=== PATIENT | female | born 1945 | race Caucasian/White ===

== ENCOUNTER 2016-06-29 10:15 | Observation (INO) ==
[2016-06-29] MEDS ORDERED: Ipratropium/Albuterol Neb 3 ML IH ONE (10:21)
--- NOTE | 2016-06-29 10:27 | Emergency Department Note ---
Disposition Clinical Impression: Weakness, Frequent falls, Unsteady gait Disposition: Admitted As Inpatient Condition: Good Time of Disposition: 14:29 Fall HPI - General Chief Complaint: ED Fall Stated Complaint: fall Time Seen by Provider: 06/29/16 10:20 Source: family, EMS Mode of arrival: ambulatory Limitations: no limitations Nursing Notes Reviewed: Yes Vital Signs Reviewed: Yes - History of Present Illness HPI Narrative: 71-year-old female history of diabetes, sleep apnea, and COPD presents the ED via EMS status post fall. is in the room and assists with history. found patient on the bathroom floor 0330 in the morning and was unable to help her up. Around 0830 he called son to come help pick her up. EMS was called. Patient believes she fell because she slipped on a magazine cover or plastic bag. Denies any lightheadedness, chest pain, shortness of breath. Complains of pain in the right hip but points in the right lower lumbar/gluteal region. History of falls in the pass due to leg weakness. Was in therapy in the past but not recently. No history of cardiac ischemic disease. Pt Subjective Complaint: fall - Related Data Home Medications Medication Instructions Recorded Confirmed Albuterol Sulfate [Albuterol 1 - 2 puff IH Q6HR PRN 12/29/14 06/29/16 Inhaler] Atenolol [Tenormin] 25 mg PO DAILY 12/29/14 06/29/16 Budesonide/Formoterol 160/4.5 2 puff IH BID 12/29/14 06/29/16 [Symbicort] Carbidopa/Levodopa 10/100 [Sinemet] 1 tab PO TID 12/29/14 06/29/16 Cetirizine HCl [Zyrtec] 10 mg PO DAILY 12/29/14 06/29/16 FLUoxetine HCl [Prozac] 40 mg PO DAILY 12/29/14 06/29/16 Lansoprazole [Prevacid] 30 mg PO QAM 12/29/14 06/29/16 Lisinopril [Zestril] 10 mg PO DAILY 12/29/14 06/29/16 Magnesium Oxide 500 mg PO DAILY 05/29/16 06/29/16 Amitriptyline HCl 100 - 200 mg PO HS 06/29/16 06/29/16 BuPROPion SR (12 HR) [Wellbutrin 150 mg PO BID 06/29/16 06/29/16 SR] Buspirone HCl [Buspar] 5 mg PO TID 06/29/16 06/29/16 Gabapentin [Neurontin] 400 mg PO TID 06/29/16 06/29/16 HYDROcodone/Acet 10/325 mg [[place] 1 tab PO TID PRN 06/29/16 06/29/16 10-325 mg] Hydrochlorothiazide [Microzide] 12.5 mg PO DAILY 06/29/16 06/29/16 Ropinirole [Requip] 3 mg PO HS 06/29/16 06/29/16 Tizanidine HCl [Zanaflex] 4 mg PO Q8H PRN 06/29/16 06/29/16 Previous Rx's Medication Instructions Recorded Ascorbic Acid [Vitamin C] 500 mg PO DAILY #30 tablet 07/07/15 Ferrous Sulfate [Iron] 325 mg PO DAILY #30 capsule.er 07/07/15 Allergies Allergy/AdvReac Type Severity Reaction Status Date / Time ciprofloxacin [From Cipro] Allergy Rash Verified 06/29/16 16:00 estradiol [From Climara] Allergy Rash Verified 06/29/16 16:00 lidocaine [From Lidoderm] Allergy Rash Verified 06/29/16 16:00 tramadol Allergy Rash Verified 06/29/16 16:00 All systems ED: reviewed and negative except as stated. Constitutional: Reports: weakness. Denies: fever, chills Cardiovascular: Denies: chest pain, palpitations Respiratory: Denies: cough, dyspnea Gastrointestinal: Denies: abdominal pain, nausea, vomiting Genitourinary: Denies: urgency, dysuria Musculoskeletal: Reports: back pain Integumentary: Denies: rash Neurological: Denies: headache Endocrine: Reports: fatigue Fall PMH - Past Medical History Medical history: Reports: COPD, diabetes, renal disease, other Surgical history: Reports: appendectomy, , cholecystectomy (1989), hysterectomy (GORDON and BSA ), orthopedic, other (sx on both feet; bunionectomy; right knee surgery), other (bladder and bowel surgery x3 ([place])10/19; colonoscopy 2012) Psychiatric history: Reports: anxiety, depression, other - Social History Smoking Status: Current every day smoker Alcohol use: Reports: unknown Drug use: Reports: none Physical Exam - General Limitations: altered mental status General appearance: alert, in no apparent distress - Head Head exam: atraumatic, normocephalic, normal inspection - Eye Eye exam: Present: normal appearance, PERRL, EOMI - ENT ENT exam: normal exam, normal oropharynx, mucous membranes dry - Neck Neck exam: Present: normal inspection, full ROM, trachea midline - Chest Chest inspection: Present: normal inspection, symmetric chest wall rise - Respiratory Respiratory exam: Present: normal lung sounds bilaterally, wheezes - Expanded Respiratory Exam Location: wheezes: Right, rales: Right - Cardiovascular Cardiovascular exam: Present: regular rate, normal rhythm, normal heart sounds - Abdominal Exam Abdominal exam: Present: soft, Non-Tender, normal bowel sounds. Absent: tenderness, distention, guarding, rebound, rigidity - Expanded Lower Extremity Exam Hip/Pelvis exam: Present: full ROM, tenderness (RIGHT HIP). Absent: swelling, deformity, dislocation, internal rotation, shortening Upper leg exam: Present: normal inspection, full ROM Knee exam: Present: normal inspection, full ROM Lower leg exam: Present: normal inspection, full ROM - Back Exam Back exam: Present: normal inspection, full ROM, vertebral tenderness (lumbar), other (ecchymosis to right scapula). Absent: tenderness, CVA tenderness (R), CVA tenderness (L), rashes - Neurological Exam Neurological exam: Present: alert, oriented X3, other (unsteady gait) - Expanded Neurological Exam Patient oriented to: Present: person, place, time Speech: Present: fluid speech Cranial nerves: EOM function (II, III, IV, ): Normal, facial sensation (V): Normal, facial palsy (VII): Normal, gag reflex (IX): Normal, spinal accessory function (XI): Normal, tongue deviation (XII): Normal Cerebellar function: finger to nose: Normal (tremor) Motor strength - LUE: 5/5 Motor strength - RUE: 5/5 Motor strength - LLE: 4/5 Motor strength - RLE: 4/5 Upper motor neuron exam: ping neglect: Absent bilaterally, pronator drift: Absent bilaterally Sensory exam upper extremity: light touch: Normal Sensory exam lower extremity: light touch: Normal Coma Scale Eye Opening: Spontaneous Coma Scale Motor Response: Obeys Commands Coma Scale Verbal Response: Oriented Coma Scale Total: 15 - Psychiatric Psychiatric exam: Present: normal affect, normal mood Course Course Narrative: 71-year-old female presents to ED status post fall. Patient was down for approximately 6 hours. She was supposedly found asleep. Presents with pain in the head. She has not recall the events and denies any prodromal symptoms. Patient is alert and oriented to person place and time. She appears very fatigued and concern for stroke as she leans towards her right. Complains of right hip pain. Lungs are auscultated bilaterally with wheezing and crackles. Heart is regular rate and rhythm. Pain with palpation to right hip, no obvious deformity or dislocation. Legs are equal length. Pulses equal bilaterally. NeurWill image head, neck, and hip. Will also get basic labs, CK, troponin and EKG to check for any cardiac ischemic event or rhabdomyolysis. - Reevaluation(s) Reevaluation #1: Son present at bedside. He reports that patient is a hoarder at home with bags and magazines laying all over the house. She has a history sleep apnea was noncompliant with her CPAP. He reports confirms the suspicion that patient may have slipped as she does have magazines in plastic bags all over the house. Reports she fell a total of 2 times that past few days. When the son was called by the stepfather to come help pear picker patient reports the patient was fast asleep. She does complain of some right leg pain. So far imaging does not reveal any fracture or intracranial abnormalities as interpreted by radiologist. Urine appears contaminated with many squamous cells and moderate leuk esterase, would not treat as UTI. Time: 12:44 Reevaluation #2: Cerebellar testing performed patient was unable to stand without support. She has a very unsteady gait. Attempted Romberg she immediately fell back or towards me. She was able to perform fuel-efficient and finger to nose with some mild disc metro-[place]. Reviewing her medications it appears she takes Sinemet patient's family is unaware of any Parkinson dementia diagnosis. Will admit to hospital with anticipation that she will need PT/OT. Impression generalized weakness, frequent falls, dysequilibrium and unsteady gait. Family and patient are in agreement with plan. Time: 14:27 - Consultations Consultation #1: Spoke with Dr. Beaulieu, admit for generalized weakness, frequent falls, unsteady gait, dysequilibrium. Time: 14:28 Vital Signs Temperature 97.1 F L 06/29/16 10:16 Pulse Rate 91 06/29/16 10:16 Respiratory Rate 18 06/29/16 10:16 Blood Pressure 137/82 06/29/16 10:16 O2 Sat by Pulse Oximetry 91 L 06/29/16 10:16 Temperature 97.8 F 06/29/16 19:57 Pulse Rate 71 06/29/16 19:57 Respiratory Rate 17 06/29/16 19:57 Blood Pressure 113/67 06/29/16 19:57 O2 Sat by Pulse Oximetry 95 06/29/16 19:57 Oxygen Delivery Oxygen Delivery Room Air Fall - Medical Records Medical records reviewed: Yes I reviewed the patient's medical records. - Lab Data Lab results reviewed: Yes I reviewed the patient's lab results. Result diagrams: 06/29/16 11:59 06/29/16 11:59 Lab Results 06/29/16 06/29/16 06/29/16 Range/Units 10:20 11:00 11:59 WBC 9.4 (4.3-11.1) K/mcL RBC 3.58 L (3.82-4.97) M/mcL Hgb 12.0 (11.5-15.4) g/dL Hct 34.2 L (35.3-44.9) % MCV 95.5 (83.0-100.0) fL MCH 33.5 H (28.0-33.3) pg MCHC 35.1 (31.6-35.5) g/dL RDW 14.3 (11.5-14.5) % Plt Count 229 (140-400) K/mcL MPV 9.6 (9.4-12.4) fL Immature Gran % 0.5 (0-4) % Seg Neutrophils % 74.0 % Lymphocytes % 16.2 % Monocytes % 7.9 % Eosinophils % 1.1 % Basophils % 0.3 % Neutrophils # 7.0 (1.6-8.9) K/mcL Lymphocytes # 1.5 (0.6-4.6) K/mcL Monocytes # 0.7 (0.0-1.3) K/mcL Eosinophils # 0.1 (0.0-0.6) K/mcL Basophils # 0.0 (0.0-0.2) K/mcL Immature Plt Fraction 3.3 (1.1-6.1) % Sodium (136-145) mEq/L Potassium (3.5-4.5) mEq/L Chloride (98-109) mEq/L Carbon Dioxide (19-29) mEq/L BUN (7-20) mg/dL Creatinine (0.57-1.11) mg/dL Est GFR ( Amer) (> 60) Est GFR (Non-Af Amer) (> 60) BUN/Creatinine Ratio (6-26) Glucose (70-99) mg/dL POC Glucose 138 H (58-89) Calculated Osmolality (280-300) Calcium (8.6-10.8) mg/dL Creatine Kinase (29-168) Units/L Troponin I (0-0.03) ng/mL Urine Color Yellow (Yellow) Urine Clarity Clear (Clear) Urine pH 5.5 (5.0-8.0) pH Units Ur Specific [place] 1.012 (1.010-1.025) Urine Protein Negative (Neg-Trace) mg/dL Urine Glucose (UA) Normal (Normal) mg/dL Urine Ketones Negative (Negative) mg/dL Urine Blood Negative (Negative) Urine Nitrite Negative (Negative) Urine Bilirubin Negative (Negative) Urine Urobilinogen Normal (Normal) mg/dL Ur Leukocyte Esterase Small H (Negative) Urine Microscopic RBC 0-3 (0-3) per hpf Urine Microscopic WBC 5-15 H (0-3) per hpf Ur Squamous Epith Cells Many H (None-Few) per lpf Urine Bacteria Few (None-Few) per hpf Hyaline Casts None Seen (None-Few) per lpf Ur Culture Indicated? YES A (NO) 06/29/16 06/29/16 06/29/16 Range/Units 11:59 11:59 11:59 WBC (4.3-11.1) K/mcL RBC (3.82-4.97) M/mcL Hgb (11.5-15.4) g/dL Hct (35.3-44.9) % MCV (83.0-100.0) fL MCH (28.0-33.3) pg MCHC (31.6-35.5) g/dL RDW (11.5-14.5) % Plt Count (140-400) K/mcL MPV (9.4-12.4) fL Immature Gran % (0-4) % Seg Neutrophils % % Lymphocytes % % Monocytes % % Eosinophils % % Basophils % % Neutrophils # (1.6-8.9) K/mcL Lymphocytes # (0.6-4.6) K/mcL Monocytes # (0.0-1.3) K/mcL Eosinophils # (0.0-0.6) K/mcL Basophils # (0.0-0.2) K/mcL Immature Plt Fraction (1.1-6.1) % Sodium 141 (136-145) mEq/L Potassium 3.4 L (3.5-4.5) mEq/L Chloride 105 (98-109) mEq/L Carbon Dioxide 25 (19-29) mEq/L BUN 12 (7-20) mg/dL Creatinine 0.93 (0.57-1.11) mg/dL Est GFR ( Amer) > 60 (> 60) Est GFR (Non-Af Amer) 60 (> 60) BUN/Creatinine Ratio 13 (6-26) Glucose 114 H (70-99) mg/dL POC Glucose (58-89) Calculated Osmolality 293 (280-300) Calcium 8.8 (8.6-10.8) mg/dL Creatine Kinase 125 (29-168) Units/L Troponin I 0.00 (0-0.03) ng/mL Urine Color (Yellow) Urine Clarity (Clear) Urine pH (5.0-8.0) pH Units Ur Specific [place] (1.010-1.025) Urine Protein (Neg-Trace) mg/dL Urine Glucose (UA) (Normal) mg/dL Urine Ketones (Negative) mg/dL Urine Blood (Negative) Urine Nitrite (Negative) Urine Bilirubin (Negative) Urine Urobilinogen (Normal) mg/dL Ur Leukocyte Esterase (Negative) Urine Microscopic RBC (0-3) per hpf Urine Microscopic WBC (0-3) per hpf Ur Squamous Epith Cells (None-Few) per lpf Urine Bacteria (None-Few) per hpf Hyaline Casts (None-Few) per lpf Ur Culture Indicated? (NO) - Radiology Data Radiology results reviewed: Yes I reviewed the patient's radiology results. Chest X-Ray 06/29/16 10:20 IMPRESSION: Right lower lobe atelectasis or infiltrate. D/ / 06/29/2016 11:20:52 Cisco Mendes MD / alanna Interpreting Provider: Cisco Mendes MD Hip X-Ray 06/29/16 10:26 IMPRESSION: 1. Unremarkable radiographs of the left hip. D/ / 06/29/2016 11:21:30 David Emery MD / Abbey Phan Interpreting Provider: David Emery MD Lumbar Spine CT 06/29/16 10:31 IMPRESSION: No acute osseous abnormality of the lumbar spine. Moderate degenerative disc disease at L4-5 with mild changes at L5-S1. D/ / 06/29/2016 11:39:46 James Ambrocio MD / Abbey Phan Interpreting Provider: James Ambrocio MD Head CT 06/29/16 10:41 IMPRESSION: 1. No acute intracranial abnormality. 2. Air-fluid level in the right maxillary sinus, correlate with signs of acute sinusitis. D/ / 06/29/2016 11:40:54 David Emery MD / Abbey Phan Interpreting Provider: David Emery MD - EKG Data EKG attestation: Yes I reviewed and interpreted this EKG. EKG results narrative: EKG performed 1023 normal sinus rhythm 89 bpm normal axis there are no ST elevations or depressions, no T-wave inversions. Intervals are within normal limits AL interval 177 QRS 107 QT QTC 376 423. Compared to old EKG performed shows normal sinus rhythm 70 bpm with some septal nonspecific T-wave changes that are not present on today's EKG. No acute ischemic changes.
--- NOTE | 2016-06-29 10:58 | Emergency Department Note ---
START Narrative - START START: I examined this patient and my medical decision-making was reviewed with the WAFER CLEANER/PA/Advanced Practice Nurse/Resident Physician. I agree with the documented findings, disposition and treatment plan as described except to the extent set forth below. ED attending: Patient's emergency medicine resident Dr. CABRERA. Please see copy of this note for H&P evaluation and management and ED disposition. We both had independent [id number] time in contact with this patient. Briefly: This 11-year-old female by EMS after reported mechanical fall. Was down on the floor at home anywhere between 3 and 6 hours. Just complains of right hip pain. No shortening or deformity noted her answers a little slower than normal but she became baseline mental status GCS 15. Patient getting labs EKG CAT scan. And plain films. Provided 45 minutes of critical care services to this patient. Disposition pending.
[2016-06-29 11:09] LABS: Bilirubin,Urine Negative (Negative); Blood,Urine Negative (Negative); Clarity,Urine Clear (Clear); Color,Urine Yellow (Yellow); Glucose,Urine (UA) Normal (Normal); Ketones,Urine Negative (Negative); Leukocyte Esterase,Urine Small (Negative); Nitrite,Urine Negative (Negative); PH,Urine 5.5 pH Units (5.0-8.0); Protein,Urine Negative (Neg-Trace); Specific Gravity,Urine 1.012 (1.010-1.025); Urobilinogen,Urine Normal (Normal)
[2016-06-29 11:12] LABS: Bacteria,Urine Few per hpf (None-Few); Hyaline Casts,Urine None Seen per lpf (None-Few); RBC,Urine 0-3 per hpf (0-3); Squamous Epithelial Cell,Urine Many per lpf (None-Few)
[2016-06-29 12:30] LABS: BUN/Creatinine Ratio 13 (6-26); Blood Urea Nitrogen 12 mg/dL (7-20); Calcium 8.8 mg/dL (8.6-10.8); Carbon Dioxide 25 mEq/L (19-29); Chloride 105 mEq/L (98-109); Glucose 114 mg/dL (70-99); Osmolality,Calculated 293 (280-300); Potassium 3.4 mEq/L (3.5-4.5); Sodium 141 mEq/L (136-145); eGFR For African Americans > 60 (> 60); eGFR For Non-African Americans 60 (> 60)
[2016-06-29 12:53] LABS: Basophils % 0.3 %; Eosinophils # 0.1 K/mcL (0.0-0.6); Eosinophils % 1.1 %; Hematocrit 34.2 % (35.3-44.9); Immature Granulocytes % 0.5 % (0-4); Immature Platelets 3.3 % (1.1-6.1); Lymphocytes # 1.5 K/mcL (0.6-4.6); Lymphocytes % 16.2 %; Mean Corpuscular HGB Conc 35.1 g/dL (31.6-35.5); Mean Corpuscular Hemoglobin 33.5 pg (28.0-33.3); Mean Corpuscular Volume 95.5 fL (83.0-100.0); Mean Platelet Volume 9.6 fL (9.4-12.4); Monocytes # 0.7 K/mcL (0.0-1.3); Monocytes % 7.9 %; Platelet Count 229 K/mcL (140-400); Red Blood Count 3.58 M/mcL (3.82-4.97); Red Cell Distribution Width 14.3 % (11.5-14.5)
[2016-06-29] MEDS ORDERED: Acetaminophen 325 MG TABLET PO PRN (16:35)
[2016-06-29] MEDS ORDERED: Naloxone 0.4 MG/ML INJ IVP PRN (16:35)
[2016-06-29] MEDS ORDERED: Ondansetron 4 MG/2 ML VIAL IVP PRN (16:35)
--- NOTE | 2016-06-29 18:01 | Internal Med History&Physical ---
<Helene Tapia Rylan - Last Filed: 06/29/16 19:04> Date of Encounter: 06/29/16 Time of Encounter: 16:55 Assessment and Plan (1) Acute exacerbation of chronic obstructive airways disease Current visit: No Status: Chronic Pt reports cough for 2-3 weeks, non-productive. Xray shows RLL ateltectasis or infiltrate. Pt possibly is hypoxic at home and could benefit from home 02. Family reports readings of SaO2 86-88%. Overnight Sp02 ABG now and at 0400 6 min walk in AM Doxycycline 100mg bid x 5 days Duonebs q4h Albuterol inh q2h prn wheezing Repeat labs in a.m. Telemetry Continuous pulse ox (2) UTI (urinary tract infection) Current visit: Yes Status: Acute Pt reports dysuria of unknown duration. Rocephin 1g IV daily. Urine culture pending. Qualifiers: Urinary tract infection type: acute cystitis Hematuria presence: without hematuria Qualified Code(s): N30.00 - Acute cystitis without hematuria (3) Frequent falls Current visit: Yes Status: Acute 2 falls in last 2 days and pt is too weak to get herself up. Will treat COPD exac, UTI, and hypokalemia, and gentle hydration. Sleep study as outpatient. Fall precautions (4) Weakness Current visit: Yes Status: Acute Plan as above PT/OT (5) Hypokalemia Current visit: Yes Status: Acute Potassium 3.4. KCl 40meq x 1. Will recheck labs in a.m. (6) Anemia Current visit: No Status: Acute Stable. Will continue iron supplementation. Qualifiers: Anemia type: iron deficiency Iron deficiency anemia type: unspecified iron deficiency Qualified Code(s): D50.9 - Iron deficiency anemia, unspecified (7) AUREA (obstructive sleep apnea) Current visit: Yes Status: Acute Patient does not use her CPAP at bedtime for the past year. Internal Medicine - H&P: HPI Chief complaint: Frequent falls x 2 days Admitted From: Home Plans for Post Hospital Care: Home History of present illness: Ms. Smith is a 71 year old female with history of COPD, anemia, anxiety, [place], and CKD. Pt has fallen at home twice over the last 2 days. Pt states that the first time she fell it was because she fell over magazines in her bedroom floor. This a.m. she fell on the bathroom floor at home and could not get up for 1 1/2 hours. Her son came to get her up and she was very weak and fell on the way out of the house with EMS. She denies injury, L hip and lumbar spine xrays done, no actue fractures or dislocations. Family reports recent increase in confusion, at times during exam pt would answer a question one way then within a minute she would answer it another way. Family is also concerned that she needs help at home due to increasing weakness and confusion. Head CT shows acute R maxillary sinusitis and no acute intracranial abnormality. She has some mild tenderness over her R maxillary sinus area and reports rhinorrhea and PND when she tries to lie down. She also reports new cough and increased inhaler use for 2-3 weeks. Chest xray shows RLL atelectasis or infiltrate. She reports chills, but does not have a thermometer. Afebrile here today. Pt also c/o dysuria for the last week or so. Urine with small amt leuk esterase , WBC 5-15, Few bacteria. Culture pending. Past Med Surg Social Fam HX - Past Medical History Medical history: COPD, diabetes, renal disease, other Psychiatric history: anxiety, depression, other - Past Surgical History Surgical History: appendectomy, , cholecystectomy, hysterectomy, orthopedic, other, other - Social History Smoking Status: Current every day smoker Packs per day: 0 Smokeless Tobacco Status: No Alcohol use: unknown Drug use: none - Family History Mother Living Status: Hx Family Cardiac Disorders: Yes (AK, CAD, HTN) Hx Family Respiratory Disorders: Yes Hx Family Endocrine Disorder: Yes (DM) Father Living Status: Hx Family Cardiac Disorders: Yes Hx Family Respiratory Disorders: Yes Hx Family Cancer: Yes (stomach) Hx Family Endocrine Disorder: Yes (DM) Brother Hx Family Neuromuscular Disorders: Yes (tremors) Sister Hx Family Endocrine Disorder: Yes (DM type II) Internal Medicine - H&P: Meds Albuterol Sulfate [Albuterol Inhaler] 1 - 2 puff IH Q6HR PRN 12/29/14 [History] Atenolol [Tenormin] 25 mg PO DAILY 12/29/14 [History] Budesonide/Formoterol 160/4.5 [Symbicort] 2 puff IH BID 12/29/14 [History] Carbidopa/Levodopa 10/100 [Sinemet] 1 tab PO TID 12/29/14 [History] Cetirizine HCl [Zyrtec] 10 mg PO DAILY 12/29/14 [History] FLUoxetine HCl [Prozac] 40 mg PO DAILY 12/29/14 [History] Lansoprazole [Prevacid] 30 mg PO QAM 12/29/14 [History] Lisinopril [Zestril] 10 mg PO DAILY 12/29/14 [History] Ascorbic Acid [Vitamin C] 500 mg PO DAILY #30 tablet 07/07/15 [Rx] Ferrous Sulfate [Iron] 325 mg PO DAILY #30 capsule.er 07/07/15 [Rx] Magnesium Oxide 500 mg PO DAILY 05/29/16 [History] Amitriptyline HCl 100 - 200 mg PO HS 06/29/16 [History] BuPROPion SR (12 HR) [Wellbutrin SR] 150 mg PO BID 06/29/16 [History] Buspirone HCl [Buspar] 5 mg PO TID 06/29/16 [History] Gabapentin [Neurontin] 400 mg PO TID 06/29/16 [History] HYDROcodone/Acet 10/325 mg [[place] 10-325 mg] 1 tab PO TID PRN 06/29/16 [History] Hydrochlorothiazide [Microzide] 12.5 mg PO DAILY 06/29/16 [History] Ropinirole [Requip] 3 mg PO HS 06/29/16 [History] Tizanidine HCl [Zanaflex] 4 mg PO Q8H PRN 06/29/16 [History] Allergies ciprofloxacin [From Cipro] Allergy (Verified 06/29/16 16:00) Rash estradiol [From Climara] Allergy (Verified 06/29/16 16:00) Rash lidocaine [From Lidoderm] Allergy (Verified 06/29/16 16:00) Rash tramadol Allergy (Verified 06/29/16 16:00) Rash All Systems PM: A 10-system review of systems was performed and is negative for pertinent findings except as documented above in the HPI. - Constitutional Constitutional: chills, fatigue, falls, weakness, no fever(s), no night sweats - Cardiovascular Cardiovascular ROS IM: no chest pain, no dyspnea, no dyspnea on exertion, no edema, no lightheadedness - Respiratory Respiratory: cough, no wheezing, no pain on inspiration, no chest congestion, no excessive phlegm production, no change in phlegm color - Gastrointestinal Gastrointestinal: no constipation, no diarrhea, no nausea, no vomiting - Genitourinary Genitourinary: dysuria, urinary urgency - Integumentary Integumentary IM: no rash - Neurological Neurological ROS: confusion, frequent falls, weakness - Constitutional Vitals: Temp Pulse Resp BP Pulse Ox 98.0 F 68 17 125/75 96 06/29/16 15:46 06/29/16 15:46 06/29/16 15:46 06/29/16 15:46 06/29/16 15:48 Internal Med - H&P Results - Labs CBC & Chem 7: 06/29/16 11:59 06/29/16 11:59 <Sommer Arias - Last Filed: 06/30/16 11:05> Date of Encounter: 06/30/16 Internal Medicine - H&P: HPI History of present illness: Ms. Smith is a 71 year old female All Systems PM: A 10-system review of systems was performed and is negative for pertinent findings except as documented above in the HPI. - Constitutional Vitals: Temp Pulse Resp BP Pulse Ox 97.6 F 77 18 95/61 95 06/30/16 10:59 06/30/16 10:59 06/30/16 10:59 06/30/16 10:59 06/30/16 10:59 Internal Med - H&P Results - Labs CBC & Chem 7: 06/30/16 05:27 06/30/16 05:27 Labs: Short CBC 06/30/16 Range/Units 05:27 WBC 7.7 (4.3-11.1) K/mcL Hgb 11.8 (11.5-15.4) g/dL Hct 35.5 (35.3-44.9) % Plt Count 219 (140-400) K/mcL Neutrophils # 4.5 (1.6-8.9) K/mcL BMP 06/30/16 05:27 Sodium 139 Potassium 3.8 Chloride 104 Carbon Dioxide 24 BUN 13 Creatinine 1.06 Glucose 149 H Calcium 8.9 - ABG Interpretation ABG results: 06/29/16 19:30 ABG pH 7.43 ABG pCO2 45 ABG pO2 77 L ABG HCO3 29.9 H ABG Total CO2 31.3 H ABG O2 Saturation 96 ABG Base Excess 4.9 H - Attending Attestation I examined this patient and reviewed laboratory, imaging and all diagnostic data on 06/29/16. My medical decision-making was reviewed with DENIS Tapia. I agree with the documented findings, disposition and treatment plan as described above. 71-year-old female with past medical history of COPD not oxygen dependent, CAD, hypertension, diabetes, and obstructive sleep apnea not compliant with CPAP at night. Patient is a factor history but reports two-week history of productive cough and shortness of breath and dysuria of unknown duration. Her family brought her because of multiple falls at home. Examination revealed diminished air entry bilateral mild wheezes. Urinalysis was suggestive of infection. Chest x-ray shows atelectasis only. She is being treated for COPD exacerbation, UTI and frequent falls. Albuterol/ Atrovent nebulizations, Mucinex, IV Rocephin, IV fluids, consult PT OT and psych social worker. Follow-up urine cultures.
[2016-06-29] MEDS ORDERED: Albuterol 2.5 MG/3 ML NEBULIZER IH PRN (18:15)
[2016-06-29] MEDS: Ipratropium/Albuterol Neb 3 ML IH SCH ×2 (19:38→23:49)
[2016-06-29 19:39] LABS: ABG Base Excess 4.9 mEq/L (-2.0 to 3.0); ABG HCO3 29.9 mEQ/L (21-27); ABG Oxygen Saturation 96 % (95-98); ABG PCO2 45 mmHg (35-45); ABG PH 7.43 pH Units (7.32-7.45); ABG PO2 77 mmHg (85-104); ABG TCO2 31.3 mEq/L (20-26)
[2016-06-29 19:40] LABS: Blood Gas FiO2 28 %
[2016-06-29] MEDS: Gabapentin 400 MG CAPSULE PO SCH (20:07)
[2016-06-29] MEDS: BuPROPion SR (12 HR) 150 MG TABLET PO SCH (20:12)
[2016-06-29] MEDS ORDERED: Doxycycline 100 MG CAPSULE PO SCH (21:00)
[2016-06-30] MEDS ORDERED: Ketorolac 15 MG/ML VIAL IVP ONE (04:37)
[2016-06-30] MEDS: Ipratropium/Albuterol Neb 3 ML IH SCH ×6 (04:44→23:53)
[2016-06-30 05:55] LABS: BUN/Creatinine Ratio 12 (6-26); Blood Urea Nitrogen 13 mg/dL (7-20); Calcium 8.9 mg/dL (8.6-10.8); Carbon Dioxide 24 mEq/L (19-29); Chloride 104 mEq/L (98-109); Glucose 149 mg/dL (70-99); Magnesium 1.4 mg/dL (1.6-2.6); Osmolality,Calculated 291 (280-300); Phosphorous 4.4 mg/dL (2.3-4.7); Potassium 3.8 mEq/L (3.5-4.5); Sodium 139 mEq/L (136-145); eGFR For African Americans > 60 (> 60); eGFR For Non-African Americans 51 (> 60)
[2016-06-30] MEDS: Ascorbic Acid 500 MG TABLET PO SCH (07:40)
[2016-06-30] MEDS: *HR* OxyCODONE Immed Rel 5 MG TABLET PO PRN ×2 (07:40→20:47)
[2016-06-30] MEDS: BuPROPion SR (12 HR) 150 MG TABLET PO SCH ×2 (07:40→20:42)
[2016-06-30] MEDS: Gabapentin 400 MG CAPSULE PO SCH ×2 (07:41→20:42)
[2016-06-30] MEDS: Loratadine 10 MG TABLET PO SCH (07:41)
[2016-06-30] MEDS: FLUoxetine 20 MG CAPSULE PO SCH (07:41)
[2016-06-30] MEDS: hydroCHLOROthiazide 25 MG TABLET PO SCH (07:41)
[2016-06-30] MEDS: Fluticasone Propionate Nasal 50 MCG/SPRAY BOTTLE NS SCH (07:43)
[2016-06-30] MEDS: MAGNESIUM OXIDE 500 MG PO SCH (07:52)
[2016-06-30 08:23] LABS: Basophils # 0.1 K/mcL (0.0-0.2); Basophils % 0.6 %; Eosinophils # 0.2 K/mcL (0.0-0.6); Eosinophils % 2.6 %; Hematocrit 35.5 % (35.3-44.9); Hemoglobin 11.8 g/dL (11.5-15.4); Immature Granulocytes % 0.3 % (0-4); Immature Platelets 3.3 % (1.1-6.1); Lymphocytes # 2.3 K/mcL (0.6-4.6); Lymphocytes % 29.3 %; Mean Corpuscular HGB Conc 33.2 g/dL (31.6-35.5); Mean Corpuscular Hemoglobin 32.3 pg (28.0-33.3); Mean Platelet Volume 9.8 fL (9.4-12.4); Monocytes # 0.7 K/mcL (0.0-1.3); Monocytes % 8.9 %; Neutrophils # 4.5 K/mcL (1.6-8.9); Platelet Count 219 K/mcL (140-400); Red Blood Count 3.65 M/mcL (3.82-4.97); Red Cell Distribution Width 14.5 % (11.5-14.5); Segmented Neutrophils % 58.3 %
[2016-06-30 08:24] LABS: Mean Corpuscular Volume 97.3 fL (83.0-100.0)
--- NOTE | 2016-06-30 16:36 | Internal Med Progress Note ---
Date of Encounter: 06/30/16 Time of Encounter: 09:00 - Assessment and plan (1) Syncope Current Visit: Yes Status: Suspected Assessment and plan: Not very sure if patient is really lost consciousness when she fell. We will place patient on Continuous cardiac monitoring to rule out arrhythmia. Echo on the duplex carotid ordered. Closely monitor patient Qualifiers: Syncope type: unspecified Qualified Code(s): R55 - Syncope and collapse (2) Frequent falls Current Visit: Yes Status: Acute Assessment and plan: Etiology is undetermined. Patient has a chronic hypoxia due to COPD, may need home oxygen. She also has AUREA, noncompliant with CPAP. We will closely monitor patient. PT OT evaluation. (3) AUREA (obstructive sleep apnea) Current Visit: Yes Status: Acute Assessment and plan: Continue CPAP during night (4) UTI (urinary tract infection) Current Visit: Yes Status: Acute Assessment and plan: Continue Rocephin treatment. Follow up urine culture. Qualifiers: Urinary tract infection type: acute cystitis Hematuria presence: without hematuria Qualified Code(s): N30.00 - Acute cystitis without hematuria (5) DVT prophylaxis Current Visit: No Status: Acute Assessment and plan: Heparin subcutaneously (6) Acute sinusitis Current Visit: Yes Status: Acute Assessment and plan: Had a CT shows right side maxillary sinus sinusitis. Patient is on Rocephin now. Qualifiers: Sinusitis location: maxillary Recurrence: non-recurrent Qualified Code(s) : J01.00 - Acute maxillary sinusitis, unspecified - Time Spent With Patient 25 - 35 minutes - Subjective Interval history: Patient is a 71-year-old female admitted for fall. Her past medical history is significant for COPD, anemia, anxiety, diabetes, CKD. Patient was seen and examined. He is awake alert, oriented 3. In no acute distress. Denies dizziness or lightheaded. Denies chest pain or shortness of breath. Vitals are stable. Patient denies loss of consciousness when she fell. However, her family member told her she passed out. Will follow up echo , duplex carotid, place patient on continuous cardiac monitoring to rule out arrhythmia. - Constitutional Vitals: Temp Pulse Resp BP Pulse Ox 98.2 F 87 18 103/66 92 L 06/30/16 15:21 06/30/16 15:21 06/30/16 15:54 06/30/16 15:21 06/30/16 15:54 General appearance: Present: A&O X 3, no acute distress, answers questions appropriately - Head Head exam: Present: atraumatic, normocephalic - Eye Eye exam: Present: PERRL, conjuntiva pink, sclera anicteric Pupils: Present: PERRL - Neck Neck exam general surgery: Present: supple, trachea midline. Absent: lymphadenopathy - Respiratory Respiratory exam: Present: CTAB. Absent: accessory muscle use, rales, rhonchi, wheezes - Cardiovascular Cardiovascular exam: Present: RRR, +S1, +S2. Absent: diastolic murmur, gallop, rubs, systolic murmur - GI/Abdominal GI/Abdominal exam: Present: normal bowel sounds, soft, no peritoneal signs. Absent: distended, tenderness - Extremities Exam Extremities exam: Present: warm, radial pulses palpable and symetrical. Absent : calf tenderness, cyanotic, pedal edema - Neurological Exam Neurological exam: Present: CN II-XII intact, oriented X3, no focal deficits. Absent: pronater drift, facial droop, speech deficit - Skin Skin exam: Present: dry, intact Internal Medicine: Result - Labs CBC & Chem 7: 06/30/16 05:27 06/30/16 05:27 Labs: Short CBC 06/30/16 Range/Units 05:27 WBC 7.7 (4.3-11.1) K/mcL Hgb 11.8 (11.5-15.4) g/dL Hct 35.5 (35.3-44.9) % Plt Count 219 (140-400) K/mcL Neutrophils # 4.5 (1.6-8.9) K/mcL BMP 06/30/16 05:27 Sodium 139 Potassium 3.8 Chloride 104 Carbon Dioxide 24 BUN 13 Creatinine 1.06 Glucose 149 H Calcium 8.9 - ABG Interpretation ABG results: ABG ABG pH 7.43 pH Units (7.32-7.45) 06/29/16 19:30 ABG pCO2 45 mmHg (35-45) 06/29/16 19:30 ABG pO2 77 mmHg (85-104) L 06/29/16 19:30 ABG O2 Saturation 96 % (95-98) 06/29/16 19:30 Consult Discharge Plan - Plan Referrals: Veronica Arshad MD [Primary Care Provider] -
[2016-06-30] MEDS: *HR* Heparin 5,000 UNIT/ML VIAL SQ SCH (18:44)
[2016-07-01] MEDS: Ipratropium/Albuterol Neb 3 ML IH SCH ×4 (03:49→15:37)
[2016-07-01 04:27] LABS: BUN/Creatinine Ratio 14 (6-26); Blood Urea Nitrogen 13 mg/dL (7-20); Calcium 8.9 mg/dL (8.6-10.8); Carbon Dioxide 24 mEq/L (19-29); Chloride 102 mEq/L (98-109); Glucose 123 mg/dL (70-99); Osmolality,Calculated 283 (280-300); Sodium 136 mEq/L (136-145); eGFR For African Americans > 60 (> 60); eGFR For Non-African Americans 60 (> 60)
[2016-07-01 04:59] LABS: Basophils # 0.1 K/mcL (0.0-0.2); Basophils % 0.6 %; Eosinophils # 0.2 K/mcL (0.0-0.6); Eosinophils % 2.9 %; Hematocrit 33.1 % (35.3-44.9); Hemoglobin 11.1 g/dL (11.5-15.4); Immature Granulocytes % 0.7 % (0-4); Immature Platelets 3.5 % (1.1-6.1); Lymphocytes # 2.4 K/mcL (0.6-4.6); Lymphocytes % 28.7 %; Mean Corpuscular HGB Conc 33.5 g/dL (31.6-35.5); Mean Corpuscular Hemoglobin 32.5 pg (28.0-33.3); Mean Platelet Volume 10.1 fL (9.4-12.4); Monocytes # 0.7 K/mcL (0.0-1.3); Monocytes % 8.6 %; Neutrophils # 4.8 K/mcL (1.6-8.9); Platelet Count 216 K/mcL (140-400); Red Blood Count 3.42 M/mcL (3.82-4.97); Red Cell Distribution Width 14.6 % (11.5-14.5); Segmented Neutrophils % 58.5 %
[2016-07-01 05:00] LABS: Mean Corpuscular Volume 96.8 fL (83.0-100.0)
[2016-07-01] MEDS: *HR* OxyCODONE Immed Rel 5 MG TABLET PO PRN (05:55)
[2016-07-01] MEDS: *HR* Heparin 5,000 UNIT/ML VIAL SQ SCH (05:56)
[2016-07-01] MEDS: FLUoxetine 20 MG CAPSULE PO SCH (08:16)
[2016-07-01] MEDS: hydroCHLOROthiazide 25 MG TABLET PO SCH (08:17)
[2016-07-01] MEDS: BuPROPion SR (12 HR) 150 MG TABLET PO SCH (08:18)
[2016-07-01] MEDS: Loratadine 10 MG TABLET PO SCH (08:18)
[2016-07-01] MEDS: Ascorbic Acid 500 MG TABLET PO SCH (08:19)
[2016-07-01] MEDS: Fluticasone Propionate Nasal 50 MCG/SPRAY BOTTLE NS SCH (08:20)
[2016-07-01] MEDS: MAGNESIUM OXIDE 500 MG PO SCH (08:20)
[2016-07-01] MEDS: Gabapentin 400 MG CAPSULE PO SCH (08:20)
--- NOTE | 2016-07-01 11:34 | ECHO - Doppler Report ---
Echocardiogram Name: Lindsay Smith Date of Study: 06/30/2016 Date: 1945 Ht: 64.0 in Medical Record#: [id number] Age: 71 Wt: 182.0 lb Gender: Female BSA: 1.88 Order #: [id number] Location: [facility] Room #: 3b21 Reading Physician: Abel Rueda DO, ALCON, DARLENE CRAWLEY [place] Internship: Carlos Buenrostro RDCS Ordering Physician: Jerome Hernandez MD Primary Physician: None Indications: Syncope Impressions: LVEF 65%. Normal LV chamber size and function. Mild concentric left ventricular hypertrophy. Mild left ventricular diastolic dysfunction. Normal right ventricular structure and function. Mild tricuspid regurgitation. Moderate pulmonary hypertension. Estimated RVSP is 52 mmHg. Left Ventricular Wall Motion: Rest Echo Findings All wall segments showed normal motion. Findings: Study Quality * Technically adequate exam. ECG Findings * Normal sinus rhythm. Left Ventricle * LVEF 65%. * Normal LV chamber size and function. * Mild concentric left ventricular hypertrophy. * Mild left ventricular diastolic dysfunction. Right Ventricle * Normal right ventricular structure and function. Left Atrium * Mild to moderately dilated left atrium. Right Atrium * Mildly dilated right atrium. Interatrial Septum * Interatrial septum not well evaluated. Aortic Valve * Trileaflet aortic valve with normal function. * No aortic regurgitation. * No aortic stenosis. Mitral Valve * Mild posterior mitral annular calcification. * Normal mitral valve function. * No mitral regurgitation. * No mitral stenosis. Tricuspid Valve * Normal tricuspid valve structure. * Mild tricuspid regurgitation. * Moderate pulmonary hypertension. * Estimated RVSP is 52 mmHg. * Estimated RA pressure is 5 mmHg. Pulmonic Valve * Normal pulmonic valve structure and function. * Trace pulmonic regurgitation. Aorta * Normally sized aortic root. Pericardium * The pericardium appears normal. IVC * Normal IVC dimensions and inspiratory collapse. Pulmonary Artery * Normal visualized portions of the main pulmonary artery. History Hypertension Family History of CAD 05/28/15 a Previous Echo was performed. Measurements: BP: 128/ 91 2D Normal Values RVIDd: 3.40 cm <2.7 cm IVSd: 1.20 cm 0.6 - 1.0 cm LVIDd: 4.00 cm 3.7 - 5.6 cm LVPWd: 1.20 cm 0.6 - 1.1 cm LVIDs: 2.40 cm 1.5 - 3.6 cm AO: 3.00 cm < 4.0 cm LA: 3.90 cm 2.0 - 4.0cm %FS: 40.00 cm >25 % LA volume: 68 Mitral Valve Peak E:.84 m/sec Peak A:1.02 m/sec E/A Ratio:0.8 Peak E' Lat Juan Luis:5.75 cm/s Peak E' Med Juan Luis:4.58 cm/s E/E' Lat Ratio:14.6 E/E' Med Ratio:18.3 Tricuspid Valve TV Regurg Peak Grad: 47.00mmHg TV Regurg Peak Juan Luis: 3.43m/sec Updated by Abel Rueda DO, ALCON, DENISA, DARLENE on 07/01/2016 11:27:54 AM electronically signed on 07/01/2016 11:28:25 AM with status of Final Wall Motion Luo: 1=Normal, 2=Hypokinesis, 3=Akinesis, 4=Dyskinesis, 5=Aneurysmal, 6=Hyperkinetic, X=Not Visualized (Blank)=Missing
[2016-07-01 14:56] VITALS: BP 127/82
--- NOTE | 2016-07-01 15:38 | Discharge Summary ---
Date of Encounter: 07/01/16 Time of Encounter: 15:00 - Discharge Diagnosis (1) Syncope Priority: Primary Status: Suspected Qualifiers: Syncope type: unspecified Qualified Code(s): R55 - Syncope and collapse (2) Frequent falls Priority: Primary Status: Acute (3) AUREA (obstructive sleep apnea) Priority: Secondary Status: Acute (4) UTI (urinary tract infection) Priority: Primary Status: Acute Qualifiers: Urinary tract infection type: acute cystitis Hematuria presence: without hematuria Qualified Code(s): N30.00 - Acute cystitis without hematuria (5) DVT prophylaxis Priority: Secondary Status: Acute (6) Acute sinusitis Priority: Primary Status: Acute Qualifiers: Sinusitis location: maxillary Recurrence: non-recurrent Qualified Code(s) : J01.00 - Acute maxillary sinusitis, unspecified - Discharge Medications Home Medications: Albuterol Sulfate [Albuterol Inhaler] 1 - 2 puff IH Q6HR PRN 12/29/14 [History] Atenolol [Tenormin] 25 mg PO DAILY 12/29/14 [History] Budesonide/Formoterol 160/4.5 [Symbicort] 2 puff IH BID 12/29/14 [History] Carbidopa/Levodopa 10/100 [Sinemet] 1 tab PO TID 12/29/14 [History] Cetirizine HCl [Zyrtec] 10 mg PO DAILY 12/29/14 [History] FLUoxetine HCl [Prozac] 40 mg PO DAILY 12/29/14 [History] Lansoprazole [Prevacid] 30 mg PO QAM 12/29/14 [History] Lisinopril [Zestril] 10 mg PO DAILY 12/29/14 [History] Ascorbic Acid [Vitamin C] 500 mg PO DAILY #30 tablet 07/07/15 [Rx] Ferrous Sulfate [Iron] 325 mg PO DAILY #30 capsule.er 07/07/15 [Rx] Magnesium Oxide 500 mg PO DAILY 05/29/16 [History] Amitriptyline HCl 100 - 200 mg PO HS 06/29/16 [History] BuPROPion SR (12 HR) [Wellbutrin SR] 150 mg PO BID 06/29/16 [History] Buspirone HCl [Buspar] 5 mg PO TID 06/29/16 [History] Gabapentin [Neurontin] 400 mg PO TID 06/29/16 [History] HYDROcodone/Acet 10/325 mg [[place] 10-325 mg] 1 tab PO TID PRN 06/29/16 [History] Hydrochlorothiazide [Microzide] 12.5 mg PO DAILY 06/29/16 [History] Ropinirole [Requip] 3 mg PO HS 06/29/16 [History] Tizanidine HCl [Zanaflex] 4 mg PO Q8H PRN 06/29/16 [History] Amoxicillin/Clavulanate [Augmentin] 500 mg PO BIDWM #10 tablet 07/01/16 [Rx] Allergies/Adverse Reactions: Allergies ciprofloxacin [From Cipro] Allergy (Verified 06/29/16 16:00) Rash estradiol [From Climara] Allergy (Verified 06/29/16 16:00) Rash lidocaine [From Lidoderm] Allergy (Verified 06/29/16 16:00) Rash tramadol Allergy (Verified 06/29/16 16:00) Rash Procedures/tests Complete & Pending: Procedures Performed prior 72 hours Category Date Time Status EV carotid duplex imaging BI Routine Y 06/30/16 10:10 Completed EV echocardiogram Routine Y 06/30/16 10:09 Completed Date of admission: 06/29/16 14:35 Primary care physician: Veronica Arshad, Consults: 06/29/16 17:45 Consult to Occupational Therapy [CONS] Routine Comment: Evaluate, develop and implement POC Consult to Physical Therapy [CONS] Routine Comment: Evaluate, develop and implement POC Consult to Regional Trainer [CONS] Routine Reason for SW Consult: Pt needs assistance at home with medications, ADLs, cooking, cleaning. Discharging clinician: Jerome Hernandez Anticipated date of discharge: 07/01/16 - Patient Status Disposition: Home, Self-Care Condition: Good Functional capacity at discharge: independent ambulation Overall status at discharge: patient is back to baseline - Discharge Instructions Follow Up With: Veronica Arshad MD [Primary Care Provider] - - Diet and Activity Activity: increase activity as tolerated Diet: diabetic diet Interval History: Ms. Smith is a 71 year old female with history of COPD, anemia, anxiety, [place], and CKD. Pt has fallen at home twice over the last 2 days. Pt states that the first time she fell it was because she fell over magazines in her bedroom floor. This a.m. she fell on the bathroom floor at home and could not get up for 1 1/2 hours. Her son came to get her up and she was very weak and fell on the way out of the house with EMS. She denies injury, L hip and lumbar spine xrays done, no actue fractures or dislocations. Family reports recent increase in confusion, at times during exam pt would answer a question one way then within a minute she would answer it another way. Family is also concerned that she needs help at home due to increasing weakness and confusion. Head CT shows acute R maxillary sinusitis and no acute intracranial abnormality. She has some mild tenderness over her R maxillary sinus area and reports rhinorrhea and PND when she tries to lie down. She also reports new cough and increased inhaler use for 2-3 weeks. Chest xray shows RLL atelectasis or infiltrate. She reports chills, but does not have a thermometer. Afebrile here today. Hospital course: Ms. Smith is a 71 year old female admitted for syncope. She was placed on cardiac monitoring. Echo and duplex carotid ordered and done, result unremarkable. Pt has no further syncope. Pt/OT evaluation recommend she has 24 hour supervision. Her said he will stay with her all the time. Pt has no further complaint and will discharge home today. She has hx of COPD, will do 6 min walking test by our nurse, if qualified, she will be prescribed home oxygen. She will be given augmentin for her sinusitis and UTI (per sensitivity). I saw and examined pt today. She is awake, alert, oriented x 3. In NAD. Vitals are stable. Stable to d/c home. - Time Spent with Patient Total time spent providing and/or coordinating discharge services: 40 minutes. Greater than 30 minutes - Constitutional Vitals: Temp Pulse Resp BP Pulse Ox 97.8 F 83 16 127/82 93 L 07/01/16 14:55 07/01/16 14:55 07/01/16 14:55 07/01/16 14:55 07/01/16 14:55 General appearance: Present: A&O X 3, no acute distress, answers questions appropriately - Head Head exam: Present: atraumatic, normocephalic - Eye Eye exam: Present: PERRL, conjuntiva pink, sclera anicteric Pupils: Present: PERRL - Neck Neck exam general surgery: Present: supple, trachea midline. Absent: lymphadenopathy - Respiratory Respiratory exam: Present: CTAB. Absent: accessory muscle use, rales, rhonchi, wheezes - Cardiovascular Cardiovascular exam: Present: RRR, +S1, +S2. Absent: diastolic murmur, gallop, rubs, systolic murmur - GI/Abdominal GI/Abdominal exam: Present: normal bowel sounds, soft, no peritoneal signs. Absent: distended, tenderness - Extremities Exam Extremities exam: Present: warm, radial pulses palpable and symetrical. Absent : calf tenderness, cyanotic, pedal edema - Neurological Exam Neurological exam: Present: CN II-XII intact, oriented X3, no focal deficits. Absent: pronater drift, facial droop, speech deficit - Skin Skin exam: Present: dry, intact
--- NOTE | 2016-07-01 21:46 | Electrocardiograph Report ---
[address] [address] Test Date: 2016-06-29 Pat Name: Lindsay Smith Department: 103 Room: 3B21 Gender: F Automatic Seamer: : 1945 Requested By: Darryn Hanson Order Number: [id number] Reading MD: Tay Godinez MD Measurements Intervals [place] Rate: 89 P: -5 TN: 177 QRS: 14 QRSD: 107 T: 30 QT: 376 QTc: 423 Interpretive Statements SINUS RHYTHM Electronically Signed On 07-01-2016 21:44:36 EST by Tay Godinez MD
--- NOTE | 2016-07-02 12:05 | Carotid Imaging Report ---
Carotid Duplex Patient Name:Lindsay Smith Order Number:[id number] Procedure Date:06/30/2016 Date:1945ge:71 yrs Gender:Female Location:[facility] Room #: Conservation Specialist:Carlos Buenrostro ARMINDA Referring MD:Jerome Hernandez MD loan counselor:None Reading MD:Eduin Tillman MD Primary Indications:Occlusion and stenosis of carotid artery without mention of cerebral infarction Risk Factors Yes/No Hypertension Yes Impressions: The bilateral carotid arteries have minimal plaque throughout. Findings Carotid Duplex: Right: The right proximal common carotid artery has a PSV of 57 cm/s and a EDV of 10 cm/s. The right mid common carotid artery has a PSV of 64 cm/s and a EDV of 16 cm/s. The right distal common carotid artery has a PSV of 53 cm/s and a EDV of 16 cm/s. The right bifurcation has a PSV of 47 cm/s and a EDV of 13 cm/s. The right proximal internal carotid artery has a PSV of 42 cm/s and a EDV of 14 cm/s. There is smooth heterogeneous plaque. The right mid internal carotid artery has a PSV of 52 cm/s and a EDV of 20 cm/s. There is smooth heterogeneous plaque. The right distal internal carotid artery has a PSV of 70 cm/s and a EDV of 26 cm/s. There is smooth heterogeneous plaque. The right eca has a PSV of 118 cm/s and a EDV of 11 cm/s. The right vertebral artery has a PSV of 62 cm/s and a EDV of 22 cm/s. Left: The left proximal common carotid artery has a PSV of 55 cm/s and a EDV of 17 cm/s. The left mid common carotid artery has a PSV of 79 cm/s and a EDV of 20 cm/s. The left distal common carotid artery has a PSV of 70 cm/s and a EDV of 24 cm/s. The left bifurcation has a PSV of 47 cm/s and a EDV of 18 cm/s. The left proximal internal carotid artery has a PSV of 50 cm/s and a EDV of 19 cm/s. There is smooth heterogeneous plaque. The left mid internal carotid artery has a PSV of 55 cm/s and a EDV of 22 cm/s. There is smooth heterogeneous plaque. The left distal internal carotid artery has a PSV of 44 cm/s and a EDV of 19 cm/s. There is smooth heterogeneous plaque. The left eca has a PSV of 71 cm/s and a EDV of 11 cm/s. The left vertebral artery has a PSV of 44 cm/s and a EDV of 15 cm/s. Prior Study: No change compared to prior study dated: 07/30/2011. Carotid Results Right PSV EDV Assessment Proximal CCA 57 10 Normal Mid CCA 64 16 Normal Distal CCA 53 16 Normal Bifurcation 47 13 Normal Proximal ICA 42 14 Non Stenotic Plaque Mid ICA 52 20 Non Stenotic Plaque Distal ICA 70 26 Non Stenotic Plaque ECA 118 11 Normal Vertebral Artery 62 22 Normal Left PSV EDV Assessment Proximal CCA 55 17 Normal Mid CCA 79 20 Normal Distal CCA 70 24 Normal Bifurcation 47 18 Normal Proximal ICA 50 19 Non Stenotic Plaque Mid ICA 55 22 Non Stenotic Plaque Distal ICA 44 19 Non Stenotic Plaque ECA 71 11 Normal Vertebral Artery 44 15 Normal Ratio's Right ICA/CCA Ratio: 1.10 ICA/CCA Values: 70/64 Left ICA/CCA Ratio: 0.70 ICA/CCA Values: 55/79 Updated by Eduin Tillman MD on 07/02/2016 12:01:51 PM electronically signed on 07/02/2016 12:02:04 PM with status of Final
== END 2016-07-01 17:15 | disposition home or self-care (01) ==
LOC: EMEROO 10:15 → 3BNU 10:15 → SUATTDRO 14:35 → 3BNU 15:31
PROVIDERS: ADMIT Internal Medicine; ATTEND Internal Medicine

== ENCOUNTER 2017-03-21 19:21 | Inpatient (IN) ==
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
[2017-03-21] MEDS ORDERED: Ipratropium/Albuterol Neb 3 ML IH ONE (19:42)
[2017-03-21] MEDS ORDERED: methylPREDNISolone 125 MG/2 ML VIAL IVP ONE (19:49)
[2017-03-21 19:57] LABS: VBG HCO3 31 mEq/L (21-27); VBG PCO2 54 mmHg (41-51); VBG PH 7.37 pH Units (7.32-7.42); VBG PO2 37 mmHg (25-50)
[2017-03-21 20:02] LABS: BUN/Creatinine Ratio 24 (6-26); Blood Urea Nitrogen 20 mg/dL (7-20); Carbon Dioxide 31 mEq/L (19-29); Chloride 99 mEq/L (98-109); Glucose 118 mg/dL (70-99); Osmolality,Calculated 290 (280-300); Potassium 4.4 mEq/L (3.5-4.5); Sodium 138 mEq/L (136-145); eGFR For African Americans > 60 (> 60); eGFR For Non-African Americans > 60 (> 60)
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
[2017-03-21 20:19] LABS: Hematocrit 33.1 % (35.3-44.9); Hemoglobin 10.6 g/dL (11.5-15.4); Mean Corpuscular Hemoglobin 29.3 pg (28.0-33.3); Mean Corpuscular Volume 91.4 fL (83.0-100.0); Mean Platelet Volume 9.6 fL (9.4-12.4); Nucleated Red Blood Cells 0.2 /100 WBC (0); Platelet Count 228 K/mcL (140-400); Red Blood Count 3.62 M/mcL (3.82-4.97); Red Cell Distribution Width 19.4 % (11.5-14.5)
[2017-03-21 20:27] LABS: Lymphocytes # 0.7 K/mcL (0.6-4.6); Monocytes # 1.3 K/mcL (0.0-1.3); Neutrophils # 8.9 K/mcL (1.6-8.9); Platelet Estimate Normal (Normal); Toxic Granulation Present (Not Present)
[2017-03-21] MEDS ORDERED: Furosemide 40 MG/4 ML VIAL IVP ONE (20:42)
[2017-03-21] MEDS ORDERED: Levofloxacin 750 MG/150 ML 750 MG/150 ML BAG IVPB ONE (21:01)
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
[2017-03-21] MEDS: Ipratropium/Albuterol Neb 3 ML IH SCH (23:42)
[2017-03-21] MEDS: Budesonide/Formoterol 160/4.5 MDI IH SCH (23:48)
[2017-03-22] MEDS: methylPREDNISolone 125 MG/2 ML VIAL IVP SCH ×4 (00:48→16:51)
[2017-03-22] MEDS: Azithromycin 500 MG in D5% in Water 250 ML IVPB SCH (00:50)
[2017-03-22] MEDS ORDERED: ALPRAZolam 0.25 MG TABLET PO ONE (01:40)
[2017-03-22] MEDS: Ipratropium/Albuterol Neb 3 ML ONE ×2 (02:24→05:36)
[2017-03-22] MEDS ORDERED: Gabapentin 300 MG CAPSULE PO ONE (02:35)
[2017-03-22 05:01] LABS: BUN/Creatinine Ratio 28 (6-26); Blood Urea Nitrogen 22 mg/dL (7-20); Calcium 8.8 mg/dL (8.6-10.8); Carbon Dioxide 32 mEq/L (19-29); Chloride 98 mEq/L (98-109); Creatine Kinase 72 Units/L (29-168); Glucose 126 mg/dL (70-99); Magnesium 1.6 mg/dL (1.6-2.6); Osmolality,Calculated 295 (280-300); Sodium 140 mEq/L (136-145); eGFR For African Americans > 60 (> 60); eGFR For Non-African Americans > 60 (> 60)
[2017-03-22] MEDS: Ipratropium/Albuterol Neb 3 ML IH SCH ×6 (05:07→23:52)
[2017-03-22 05:37] LABS: Basophils % 0.1 %; Hematocrit 28.3 % (35.3-44.9); Hemoglobin 9.1 g/dL (11.5-15.4); Immature Granulocytes % 0.3 % (0-4); Lymphocytes # 0.5 K/mcL (0.6-4.6); Lymphocytes % 5.9 %; Mean Corpuscular Hemoglobin 29.4 pg (28.0-33.3); Monocytes # 0.3 K/mcL (0.0-1.3); Monocytes % 3.9 %; Neutrophils # 7.1 K/mcL (1.6-8.9); Nucleated Red Blood Cells 0.3 /100 WBC (0); Platelet Count 206 K/mcL (140-400); Red Blood Count 3.09 M/mcL (3.82-4.97); Red Cell Distribution Width 19.1 % (11.5-14.5); Segmented Neutrophils % 89.8 %
[2017-03-22 05:38] LABS: Mean Corpuscular Volume 91.6 fL (83.0-100.0)
[2017-03-22 05:39] LABS: Mean Corpuscular HGB Conc 32.2 g/dL (31.6-35.5)
[2017-03-22] MEDS: *HR* Heparin 5,000 UNIT/ML VIAL SQ SCH ×3 (05:42→21:09)
[2017-03-22 05:56] LABS: Anisocytosis 1+ (Not Present)
[2017-03-22 05:57] LABS: Microcytosis Present (Not Present); Platelet Estimate Normal (Normal)
[2017-03-22] MEDS: Budesonide/Formoterol 160/4.5 MDI IH SCH ×2 (08:05→20:34)
[2017-03-22] MEDS: FLUoxetine 20 MG CAPSULE PO SCH (10:21)
[2017-03-22] MEDS: Gabapentin 300 MG CAPSULE PO SCH ×3 (10:21→21:08)
[2017-03-22] MEDS: Furosemide 40 MG/4 ML VIAL IVP SCH ×2 (10:21→21:10)
[2017-03-22] MEDS: Propranolol LA (24 HR) 80 MG CAP.SA.24H PO SCH (10:21)
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
[2017-03-22] MEDS: MethylPREDNISolone 40 MG/ML VIAL IVP SCH (21:06)
[2017-03-23] MEDS: MethylPREDNISolone 40 MG/ML VIAL IVP SCH ×3 (00:32→16:06)
[2017-03-23] MEDS: Azithromycin 500 MG in D5% in Water 250 ML IVPB SCH (00:33)
[2017-03-23] MEDS: Ipratropium/Albuterol Neb 3 ML IH SCH ×5 (03:37→20:42)
[2017-03-23 04:58] LABS: BUN/Creatinine Ratio 31 (6-26); Blood Urea Nitrogen 25 mg/dL (7-20); Calcium 9.4 mg/dL (8.6-10.8); Carbon Dioxide 35 mEq/L (19-29); Chloride 96 mEq/L (98-109); Glucose 126 mg/dL (70-99); Osmolality,Calculated 294 (280-300); Potassium 4.4 mEq/L (3.5-4.5); Sodium 139 mEq/L (136-145); eGFR For African Americans > 60 (> 60); eGFR For Non-African Americans > 60 (> 60)
[2017-03-23] MEDS: *HR* Heparin 5,000 UNIT/ML VIAL SQ SCH ×3 (05:18→22:05)
[2017-03-23 05:28] LABS: Basophils % 0.1 %; Eosinophils % 0.1 %; Hematocrit 27.7 % (35.3-44.9); Hemoglobin 8.8 g/dL (11.5-15.4); Immature Granulocytes % 0.4 % (0-4); Lymphocytes # 0.7 K/mcL (0.6-4.6); Lymphocytes % 9.3 %; Mean Corpuscular HGB Conc 31.8 g/dL (31.6-35.5); Mean Corpuscular Hemoglobin 29.1 pg (28.0-33.3); Mean Corpuscular Volume 91.7 fL (83.0-100.0); Mean Platelet Volume 10.1 fL (9.4-12.4); Monocytes # 0.5 K/mcL (0.0-1.3); Monocytes % 6.3 %; Neutrophils # 6.2 K/mcL (1.6-8.9); Platelet Count 236 K/mcL (140-400); Red Blood Count 3.02 M/mcL (3.82-4.97); Red Cell Distribution Width 19.4 % (11.5-14.5); Segmented Neutrophils % 83.8 %
[2017-03-23] MEDS: Budesonide/Formoterol 160/4.5 MDI IH SCH ×2 (07:49→20:42)
[2017-03-23] MEDS: Furosemide 40 MG/4 ML VIAL IVP SCH ×2 (10:00→22:08)
[2017-03-23] MEDS: Propranolol LA (24 HR) 80 MG CAP.SA.24H PO SCH (10:01)
[2017-03-23] MEDS: Gabapentin 300 MG CAPSULE PO SCH ×3 (10:01→22:03)
[2017-03-23] MEDS: FLUoxetine 20 MG CAPSULE PO SCH (10:01)
--- NOTE | 2017-03-23 12:49 | Internal Med Progress Note ---
<Jeffery Denis Roula - Last Filed: 03/23/17 12:46> Date of Encounter: 03/23/17 Time of Encounter: 12:46 - Assessment and plan (1) CHF (congestive heart failure) Current Visit: Yes Status: Acute Assessment and plan: Worsening dyspnea and LE edema. Crackles on exam CXR: pulmonary vascular congestion. Worse than previous exam Previous Echo 06/30/16: LVEF 65% with concentric LV hypertrophy, mild LV diastolic dysfunction, moderate pulmonary hypertension BNP elevated 405 Echo pending Continue Lasix, BiPAP, I/Os, daily weight Qualifiers: Congestive heart failure type: diastolic Congestive heart failure chronicity: unspecified congestive heart failure chronicity Qualified Code(s) : I50.30 - Unspecified diastolic (congestive) heart failure (2) Acute exacerbation of chronic obstructive airways disease Current Visit: No Status: Chronic Assessment and plan: Worsening dyspnea with productive sputum Blood culture 03/21/17 - no growth to date Continue solu-medrol 40mg q8H and continue to taper as pt improves Continue Azithromycin day #2 (3) Acute respiratory failure Current Visit: Yes Status: Acute Assessment and plan: Secondary to CHF and COPD O2 sat in the 80's upon presentation VBG: pH 7.37, pCO2 54, HCO3 31 Continue BiPAP and O2 supplementation as needed Qualifiers: Respiratory failure complication: hypoxia and hypercapnia Qualified Code(s) : J96.01 - Acute respiratory failure with hypoxia; J96.02 - Acute respiratory failure with hypercapnia; J96.02 - Acute respiratory failure with hypercapnia; J96.02 - Acute respiratory failure with hypercapnia - Subjective Interval history: Pt sitting up in chair beside bed. She does report her shortness of breath and wheezing are improving. She reports her LE is almost gone. She denies syncope, light-headedness, chest pain, N/V/D/C, dysuria, or leg pain. - Constitutional Vitals: Temp Pulse Resp BP Pulse Ox 98.2 F 67 12 119/63 98 03/23/17 10:42 03/23/17 10:42 03/23/17 10:42 03/23/17 10:42 03/23/17 10:42 General appearance: Present: mild distress, A&O X 3 - Head Head exam: Present: atraumatic, normocephalic - Eye Eye exam: Present: conjuntiva pink, sclera anicteric - Neck Neck exam general surgery: Present: supple, trachea midline. Absent: lymphadenopathy - Respiratory Respiratory exam: Present: decreased breath sounds, rales, wheezes. Absent: accessory muscle use, rhonchi - Cardiovascular Cardiovascular exam: Present: RRR, +S1, +S2. Absent: diastolic murmur, systolic murmur - GI/Abdominal GI/Abdominal exam: Present: normal bowel sounds, soft, no peritoneal signs. Absent: distended, tenderness - Extremities Exam Extremities exam: Present: pedal edema, warm, radial pulses palpable and symmetrical. Absent: calf tenderness, cyanotic - Neurological Exam Neurological exam: Present: CN II-XII intact, oriented X3, no focal deficits. Absent: facial droop, speech deficit - Skin Skin exam: Present: dry, intact Internal Medicine: Result - Labs CBC & Chem 7: 03/23/17 04:08 03/23/17 04:08 Labs: Short CBC 03/23/17 Range/Units 04:08 WBC 7.5 (4.3-11.1) K/mcL Hgb 8.8 L (11.5-15.4) g/dL Hct 27.7 L (35.3-44.9) % Plt Count 236 (140-400) K/mcL Neutrophils # 6.2 (1.6-8.9) K/mcL BMP 03/23/17 04:08 Sodium 139 Potassium 4.4 Chloride 96 L Carbon Dioxide 35 H BUN 25 H Creatinine 0.81 Glucose 126 H Calcium 9.4 Consult Discharge Plan - Plan Referrals: Veronica Arshad MD [Primary Care Provider] - <Margaret Hernandezsandovalshira - Last Filed: 03/23/17 15:30> Date of Encounter: 03/23/17 - Constitutional Vitals: Temp Pulse Resp BP Pulse Ox 98.2 F 67 16 119/63 99 03/23/17 10:42 03/23/17 10:42 03/23/17 11:23 03/23/17 11:23 03/23/17 11:23 Internal Medicine: Result - Labs CBC & Chem 7: 03/23/17 04:08 03/23/17 04:08 Labs: Short CBC 03/23/17 Range/Units 04:08 WBC 7.5 (4.3-11.1) K/mcL Hgb 8.8 L (11.5-15.4) g/dL Hct 27.7 L (35.3-44.9) % Plt Count 236 (140-400) K/mcL Neutrophils # 6.2 (1.6-8.9) K/mcL BMP 03/23/17 04:08 Sodium 139 Potassium 4.4 Chloride 96 L Carbon Dioxide 35 H BUN 25 H Creatinine 0.81 Glucose 126 H Calcium 9.4 - Attending Attestation I have seen and examined the patient independently. I have discussed with resident physician Dr. Denis regarding the management plan. Agree with the documentation. Patient still has wheezing. Shortness of breath has improved. We will continue antibiotic, steroid, and bronchodilator for COPD exacerbation. Will DC home medication propranolol but continue beta 1 selective silvestre metoprolol.
[2017-03-23] MEDS ORDERED: *HR* HYDROcodone/Acet 5/325 mg TABLET PO PRN (13:50)
--- NOTE | 2017-03-23 17:45 | Electrocardiograph Report ---
[place] [id number] Test Date: 2017-03-21 Pat Name: Lindsay Smith Department: 102 Room: [facility] Gender: F [employer]ger: Tmr : 1945 Requested By: Nahun Pitts Order Number: [id number] Reading MD: Tay Godinez MD Measurements Intervals [place] Rate: 92 P: 55 NC: 178 QRS: 48 QRSD: 105 T: 57 QT: 338 QTc: 387 Interpretive Statements SINUS RHYTHM WITH SINUS ARRHYTHMIA BASELINE ARTIFACT Electronically Signed On 03-23-2017 17:43:57 EST by Tay Godinez MD
[2017-03-24] MEDS: Ipratropium/Albuterol Neb 3 ML IH SCH ×7 (00:53→23:58)
[2017-03-24] MEDS: Azithromycin 500 MG in D5% in Water 250 ML IVPB SCH (01:17)
[2017-03-24] MEDS: MethylPREDNISolone 40 MG/ML VIAL IVP SCH ×3 (01:17→16:35)
[2017-03-24 05:24] LABS: Basophils % 0.1 %; Hematocrit 28.9 % (35.3-44.9); Hemoglobin 9.1 g/dL (11.5-15.4); Immature Granulocytes % 0.6 % (0-4); Immature Platelets 5.3 % (1.1-6.1); Lymphocytes # 1.4 K/mcL (0.6-4.6); Lymphocytes % 14.2 %; Mean Corpuscular Hemoglobin 29.2 pg (28.0-33.3); Monocytes % 5.7 %; Neutrophils # 7.6 K/mcL (1.6-8.9); Nucleated Red Blood Cells 0.2 /100 WBC (0); Platelet Count 258 K/mcL (140-400); Red Blood Count 3.12 M/mcL (3.82-4.97); Red Cell Distribution Width 19.3 % (11.5-14.5); Segmented Neutrophils % 79.4 %
[2017-03-24 05:26] LABS: Mean Corpuscular HGB Conc 31.5 g/dL (31.6-35.5); Mean Corpuscular Volume 92.6 fL (83.0-100.0); Monocytes # 0.6 K/mcL (0.0-1.3)
[2017-03-24 05:48] LABS: Anisocytosis 1+ (Not Present); Platelet Estimate Normal (Normal)
[2017-03-24 05:49] LABS: Microcytosis Present (Not Present)
[2017-03-24] MEDS: *HR* Heparin 5,000 UNIT/ML VIAL SQ SCH ×3 (05:58→20:21)
[2017-03-24 07:03] LABS: BUN/Creatinine Ratio 31 (6-26); Blood Urea Nitrogen 29 mg/dL (7-20); Calcium 9.3 mg/dL (8.6-10.8); Carbon Dioxide 35 mEq/L (19-29); Chloride 95 mEq/L (98-109); Glucose 120 mg/dL (70-99); Osmolality,Calculated 297 (280-300); Potassium 4.5 mEq/L (3.5-4.5); Sodium 140 mEq/L (136-145); eGFR For African Americans > 60 (> 60); eGFR For Non-African Americans 60 (> 60)
[2017-03-24] MEDS: Budesonide/Formoterol 160/4.5 MDI IH SCH ×2 (08:00→20:26)
[2017-03-24] MEDS: FLUoxetine 20 MG CAPSULE PO SCH (09:29)
[2017-03-24] MEDS: Gabapentin 300 MG CAPSULE PO SCH ×3 (09:29→20:20)
[2017-03-24] MEDS: Furosemide 40 MG/4 ML VIAL IVP SCH ×2 (09:29→16:35)
[2017-03-24] MEDS ORDERED: *HR* HYDROcodone/Acet 5/325 mg TABLET PO PRN (11:13)
--- NOTE | 2017-03-24 11:20 | Internal Med Progress Note ---
<Jeffery Denis Roula - Last Filed: 03/24/17 11:17> Date of Encounter: 03/24/17 Time of Encounter: 11:17 - Assessment and plan (1) Acute exacerbation of chronic obstructive airways disease Current Visit: No Status: Chronic Assessment and plan: Worsening dyspnea with productive sputum Blood culture 03/21/17 - no growth to date Continue solu-medrol 40mg q8H and continue to taper as pt improves Continue Azithromycin day #3 Continues to have wheezing throughout lungs (2) CHF (congestive heart failure) Current Visit: Yes Status: Acute Assessment and plan: Worsening dyspnea and LE edema. Crackles on exam CXR: pulmonary vascular congestion. Worse than previous exam Previous Echo 06/30/16: LVEF 65% with concentric LV hypertrophy, mild LV diastolic dysfunction, moderate pulmonary hypertension BNP elevated 405 Echo: LVEF 55-60%, Mild diastolic dysfunction, mild pulmonary hypertension Continue Lasix, BiPAP, I/Os, daily weight Qualifiers: Congestive heart failure type: diastolic Congestive heart failure chronicity: unspecified congestive heart failure chronicity Qualified Code(s) : I50.30 - Unspecified diastolic (congestive) heart failure (3) Acute respiratory failure Current Visit: Yes Status: Acute Assessment and plan: Secondary to CHF and COPD O2 sat in the 80's upon presentation VBG: pH 7.37, pCO2 54, HCO3 31 Continue BiPAP and O2 supplementation as needed Remaining in 90's on 2-4L O2 Switch from home propranolol to metoprolol Qualifiers: Respiratory failure complication: hypoxia and hypercapnia Qualified Code(s) : J96.01 - Acute respiratory failure with hypoxia; J96.02 - Acute respiratory failure with hypercapnia; J96.02 - Acute respiratory failure with hypercapnia; J96.02 - Acute respiratory failure with hypercapnia - Subjective Interval history: Pt resting comfortably in bed. She does report her shortness of breath and wheezing are continuing to improve. She reports her LE edema is almost gone. She denies syncope, light-headedness, chest pain, N/V/D/C, dysuria, or leg pain. - Constitutional Vitals: Temp Pulse Resp BP Pulse Ox 97.7 F 61 16 109/54 99 03/24/17 06:51 03/24/17 06:51 03/24/17 08:01 03/24/17 06:51 03/24/17 08:01 General appearance: Present: A&O X 3, no acute distress - Head Head exam: Present: atraumatic, normocephalic - Eye Eye exam: Present: conjuntiva pink, sclera anicteric - Neck Neck exam general surgery: Present: supple, trachea midline. Absent: lymphadenopathy - Respiratory Respiratory exam: Present: decreased breath sounds, rales (bibasilar), wheezes ( throughout). Absent: accessory muscle use, rhonchi - Cardiovascular Cardiovascular exam: Present: RRR, +S1, +S2. Absent: diastolic murmur, systolic murmur - GI/Abdominal GI/Abdominal exam: Present: normal bowel sounds, soft, no peritoneal signs. Absent: distended, tenderness - Extremities Exam Extremities exam: Present: warm, radial pulses palpable and symmetrical. Absent : calf tenderness, cyanotic, pedal edema - Neurological Exam Neurological exam: Present: CN II-XII intact, oriented X3, no focal deficits. Absent: facial droop, speech deficit - Skin Skin exam: Present: dry, intact Internal Medicine: Result - Labs CBC & Chem 7: 03/24/17 03:09 03/24/17 05:45 Labs: Short CBC 03/24/17 Range/Units 03:09 WBC 9.6 (4.3-11.1) K/mcL Hgb 9.1 L (11.5-15.4) g/dL Hct 28.9 L (35.3-44.9) % Plt Count 258 (140-400) K/mcL Neutrophils # 7.6 (1.6-8.9) K/mcL BMP 03/24/17 05:45 Sodium 140 Potassium 4.5 Chloride 95 L Carbon Dioxide 35 H BUN 29 H Creatinine 0.93 Glucose 120 H Calcium 9.3 - Impressions Impressions Echocardiogram 03/22/17 07:22 Impressions: LVEF 55-60%. Mild diastolic dysfunction Mild pulmonary hypertension. No significant valvular dysfunction. Left Ventricular Wall Motion: Rest Echo Findings All wall segments showed normal motion. Findings: Study Quality * Technically adequate exam. Right Ventricle * Normal right ventricular structure and function. Right Atrium * Normal right atrial size. Aortic Valve * Trileaflet aortic valve with normal function. Interatrial Septum * No evidence of PFO by color Doppler. Aorta * Normally sized aortic root. Pericardium * The pericardium appears normal. ECG Findings * Normal sinus rhythm. Left Ventricle * LVEF 55-60%. * Mild left ventricular diastolic dysfunction. Mitral Valve * No mitral stenosis. * Mild mitral annular calcification * Trace mitral regurgitation. Tricuspid Valve * Trace tricuspid regurgitation. * No tricuspid stenosis. * Estimated RVSP is 38 mmHg. * Mild pulmonary hypertension. IVC * Normal IVC dimensions and inspiratory collapse. Left Atrium * Mildly dilated left atrium. Consult Discharge Plan - Plan Referrals: Veronica Arshad MD [Primary Care Provider] - <Jerome Hernandez - Last Filed: 03/24/17 17:36> Date of Encounter: 03/24/17 - Constitutional Vitals: Temp Pulse Resp BP Pulse Ox 98 F 66 16 115/53 95 03/24/17 15:00 03/24/17 15:00 03/24/17 15:51 03/24/17 15:00 03/24/17 15:51 Internal Medicine: Result - Labs CBC & Chem 7: 03/24/17 03:09 03/24/17 05:45 Labs: Short CBC 03/24/17 Range/Units 03:09 WBC 9.6 (4.3-11.1) K/mcL Hgb 9.1 L (11.5-15.4) g/dL Hct 28.9 L (35.3-44.9) % Plt Count 258 (140-400) K/mcL Neutrophils # 7.6 (1.6-8.9) K/mcL BMP 03/24/17 05:45 Sodium 140 Potassium 4.5 Chloride 95 L Carbon Dioxide 35 H BUN 29 H Creatinine 0.93 Glucose 120 H Calcium 9.3 - Attending Attestation I have seen and examined pt independently. I have discussed with resident physician Dr Denis regarding the management plan. Agree with the documentation. Pt feels less SOB. Pt still has wheezing but seem improved. Cont current treatment. Cont supportive treatment.
[2017-03-24] MEDS ORDERED: MethylPREDNISolone 40 MG/ML VIAL IVP SCH (18:00)
[2017-03-24 19:49] LABS: CK-BB (CK isoenzymes) 0 % (0-0); CK-MB (CK isoenzymes) 0 % (0-4); CK-MM (CK-isoenzymes) 100 % (96-100)
[2017-03-24] MEDS ORDERED: Temazepam 15 MG CAPSULE PO PRN (22:49)
[2017-03-25] MEDS: MethylPREDNISolone 40 MG/ML VIAL IVP SCH ×2 (00:35→09:06)
[2017-03-25] MEDS: Azithromycin 500 MG in D5% in Water 250 ML IVPB SCH (00:35)
[2017-03-25] MEDS: Ipratropium/Albuterol Neb 3 ML IH SCH ×4 (04:05→16:06)
[2017-03-25 05:39] LABS: BUN/Creatinine Ratio 33 (6-26); Blood Urea Nitrogen 28 mg/dL (7-20); Carbon Dioxide 35 mEq/L (19-29); Chloride 94 mEq/L (98-109); Glucose 122 mg/dL (70-99); Osmolality,Calculated 295 (280-300); Sodium 139 mEq/L (136-145); eGFR For African Americans > 60 (> 60); eGFR For Non-African Americans > 60 (> 60)
[2017-03-25 05:40] LABS: Potassium 4.5 mEq/L (3.5-4.5)
[2017-03-25] MEDS: *HR* Heparin 5,000 UNIT/ML VIAL SQ SCH (06:03)
[2017-03-25 06:20] LABS: Hematocrit 28.8 % (35.3-44.9); Hemoglobin 9.4 g/dL (11.5-15.4); Immature Platelets 4.2 % (1.1-6.1); Mean Corpuscular HGB Conc 32.6 g/dL (31.6-35.5); Mean Corpuscular Hemoglobin 29.4 pg (28.0-33.3); Mean Platelet Volume 9.8 fL (9.4-12.4); Red Blood Count 3.2 M/mcL (3.82-4.97); Red Cell Distribution Width 18.7 % (11.5-14.5)
[2017-03-25 07:19] LABS: CK Total (Ck Isoenzymes) 76 U/L (20-180)
[2017-03-25] MEDS: FLUoxetine 20 MG CAPSULE PO SCH (09:04)
[2017-03-25] MEDS: Gabapentin 300 MG CAPSULE PO SCH (09:04)
[2017-03-25] MEDS: Furosemide 40 MG/4 ML VIAL IVP SCH (09:05)
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
--- NOTE | 2017-03-25 10:47 | Internal Med Progress Note ---
<Jeffery Denis Roula - Last Filed: 03/25/17 10:44> Date of Encounter: 03/25/17 Time of Encounter: 10:44 - Assessment and plan (1) Acute exacerbation of chronic obstructive airways disease Current Visit: No Status: Chronic Assessment and plan: Worsening dyspnea with productive sputum Blood culture 03/21/17 - no growth to date Continue solu-medrol 40mg q8H and continue to taper as pt improves Discontinue azithromycin Wheezes on lung exam PT/OT is recommending rehab upon discharge - likely go tomorrow (2) CHF (congestive heart failure) Current Visit: Yes Status: Acute Assessment and plan: Worsening dyspnea and LE edema. Crackles on exam CXR: pulmonary vascular congestion. Worse than previous exam Previous Echo 06/30/16: LVEF 65% with concentric LV hypertrophy, mild LV diastolic dysfunction, moderate pulmonary hypertension BNP elevated 405 Echo: LVEF 55-60%, Mild diastolic dysfunction, mild pulmonary hypertension Continue Lasix, BiPAP, I/Os, daily weight Qualifiers: Congestive heart failure type: diastolic Congestive heart failure chronicity: unspecified congestive heart failure chronicity Qualified Code(s) : I50.30 - Unspecified diastolic (congestive) heart failure (3) Acute respiratory failure Current Visit: Yes Status: Acute Assessment and plan: Secondary to CHF and COPD O2 sat in the 80's upon presentation VBG: pH 7.37, pCO2 54, HCO3 31 Continue BiPAP and O2 supplementation as needed Remaining in 90's on 2-4L O2 Overnight BiPAP qualification Qualifiers: Respiratory failure complication: hypoxia and hypercapnia Qualified Code(s) : J96.01 - Acute respiratory failure with hypoxia; J96.02 - Acute respiratory failure with hypercapnia; J96.02 - Acute respiratory failure with hypercapnia; J96.02 - Acute respiratory failure with hypercapnia (4) Tobacco abuse Current Visit: No Status: Chronic Assessment and plan: Nicotine patches. Recommended quitting upon discharge - Subjective Interval history: Pt resting comfortably in bed. She does report her shortness of breath and wheezing are continuing to improve. She reports her LE edema is almost gone. Reports no new complaints. She denies syncope, light-headedness, chest pain, N/V /D/C, dysuria, or leg pain. - Constitutional Vitals: Temp Pulse Resp BP Pulse Ox 98.3 F 66 11 133/75 94 03/25/17 07:14 03/25/17 07:14 03/25/17 07:47 03/25/17 07:47 03/25/17 07:47 General appearance: Present: A&O X 3, no acute distress - Head Head exam: Present: atraumatic, normocephalic - Eye Eye exam: Present: conjuntiva pink, sclera anicteric - Neck Neck exam general surgery: Present: supple, trachea midline. Absent: lymphadenopathy - Respiratory Respiratory exam: Present: wheezes. Absent: accessory muscle use, rales, rhonchi - Cardiovascular Cardiovascular exam: Present: gallop, RRR, rubs, +S1, +S2. Absent: diastolic murmur, systolic murmur - GI/Abdominal GI/Abdominal exam: Present: normal bowel sounds, soft, no peritoneal signs. Absent: distended, tenderness - Extremities Exam Extremities exam: Present: warm, radial pulses palpable and symmetrical. Absent : calf tenderness, cyanotic, pedal edema - Neurological Exam Neurological exam: Present: CN II-XII intact, oriented X3, no focal deficits. Absent: facial droop, speech deficit - Skin Skin exam: Present: dry, intact Internal Medicine: Result - Labs CBC & Chem 7: 03/25/17 04:57 03/25/17 04:57 Labs: Short CBC 03/25/17 Range/Units 04:57 WBC 9.2 (4.3-11.1) K/mcL Hgb 9.4 L (11.5-15.4) g/dL Hct 28.8 L (35.3-44.9) % Plt Count 259 (140-400) K/mcL BMP 03/25/17 04:57 Sodium 139 Potassium 4.5 Chloride 94 L Carbon Dioxide 35 H BUN 28 H Creatinine 0.86 Glucose 122 H Calcium 9.0 Cardiac Enzymes 03/22/17 Range/Units 04:19 CK-MB (CK-2) 0 (0-4) % Consult Discharge Plan - Plan Instructions: Prednisone (By mouth), Nicotine (Absorbed through the skin), Budesonide/Formoterol (By breathing), Heart Failure (DC), Acute Respiratory Distress Syndrome (DC) Additional Instructions: Take your medications as prescribed Complete a steroid taper - Take 4 tabs for 5 days, then 3 tabs for 5 days, then 2 tabs for 5 days, then 1 tab for 5 days, then stop Use one nicotine patch daily and follow-up with your PCP for tapering doses You are encouraged to STOP SMOKING Follow-up with your Primary Care Provider Referrals: Veronica Arshad MD [Primary Care Provider] - 03/31/17 2:00 pm Prescriptions: Budesonide/Formoterol 160/4.5 [Symbicort 160/4.5] 1 puff IH BIDR #1 inh Nicotine Patch [Nicoderm] 1 each TD DAILY #30 patch.td24 predniSONE [PredniSONE] See Taper PO DAILY #50 tablet <Victor M Eid H - Last Filed: 03/25/17 17:39> Date of Encounter: 03/25/17 - Constitutional Vitals: Temp Pulse Resp BP Pulse Ox 98.7 F 67 14 146/86 95 03/25/17 15:03 03/25/17 15:03 03/25/17 16:07 03/25/17 15:03 03/25/17 16:07 Internal Medicine: Result - Labs CBC & Chem 7: 03/25/17 04:57 03/25/17 04:57 Labs: Short CBC 03/25/17 Range/Units 04:57 WBC 9.2 (4.3-11.1) K/mcL Hgb 9.4 L (11.5-15.4) g/dL Hct 28.8 L (35.3-44.9) % Plt Count 259 (140-400) K/mcL BMP 03/25/17 04:57 Sodium 139 Potassium 4.5 Chloride 94 L Carbon Dioxide 35 H BUN 28 H Creatinine 0.86 Glucose 122 H Calcium 9.0 Cardiac Enzymes 03/22/17 Range/Units 04:19 CK-MB (CK-2) 0 (0-4) % - ABG Interpretation ABG results: ABG ABG pH 7.52 pH Units (7.32-7.45) H 03/25/17 12:19 ABG pCO2 47 mmHg (35-45) H 03/25/17 12:19 ABG pO2 50 mmHg (85-104) L* 03/25/17 12:19 ABG O2 Saturation 88 % (95-98) L 03/25/17 12:19 - Attending Attestation Acute hypoxic hypercapnic respiratory failure secondary to acute COPD exacerbation likely due to acute viral bronchitis OK to discharged today I examined this patient and my medical decision-making was reviewed with the Resident Physician. I agree with the documented findings, disposition and treatment plan as described except to the extent set forth below.
[2017-03-25] MEDS: Budesonide/Formoterol 160/4.5 MDI IH SCH (11:29)
[2017-03-25 12:27] LABS: ABG Base Excess 14 mEq/L (-2 to 3); ABG HCO3 38 mEq/L (21-27); ABG Oxygen Saturation 88 % (95-98); ABG PCO2 47 mmHg (35-45); ABG PH 7.52 pH Units (7.32-7.45); ABG PO2 50 mmHg (85-104); ABG TCO2 40 mEq/L (20-26)
--- NOTE | 2017-03-25 15:01 | Physician Discharge Referral ---
<Jeffery Denis - Last Filed: 03/25/17 15:00> Home Health/Hosp Referral Info Transfer to: Home Health Provider in Charge Post Discharge: PCP - Diagnosis (1) Acute exacerbation of chronic obstructive airways disease Priority: Primary Status: Chronic (2) CHF (congestive heart failure) Priority: Secondary Status: Acute (3) Acute respiratory failure Priority: Secondary Status: Acute (4) Tobacco abuse Priority: Secondary Status: Chronic - Respiratory Orders Oxygen / L per min (2L nasal canula) Smoking Cessation: Smoking cessation has been advised. For more information, call the [place] Tobacco Quit Line at 3-504-HZYI-NOW. - Activity Activity Orders: Ambulate - Services Needed Following services are medically necessary services: Nursing, Physical Therapy, Occupational Therapy - Transfer Medications Prescriptions: Budesonide/Formoterol 160/4.5 [Symbicort 160/4.5] 1 puff IH BIDR #1 inh Nicotine Patch [Nicoderm] 1 each TD DAILY #30 patch.td24 predniSONE [PredniSONE] See Taper PO DAILY #50 tablet Home Medications: Albuterol Sulfate [Albuterol Inhaler] 1 - 2 puff IH Q6HR PRN 12/29/14 [History] Budesonide/Formoterol 160/4.5 [Symbicort] 2 puff IH BID 12/29/14 [History] Carbidopa/Levodopa 10/100 [Sinemet] 1 tab PO TID 12/29/14 [History] FLUoxetine HCl [Prozac] 40 mg PO DAILY 12/29/14 [History] Lansoprazole [Prevacid] 30 mg PO QAM 12/29/14 [History] Ferrous Sulfate [Iron] 325 mg PO DAILY #30 capsule.er 07/07/15 [Rx] Amitriptyline HCl 100 - 200 mg PO HS 06/29/16 [History] Tizanidine HCl [Zanaflex] 4 mg PO Q8H PRN 06/29/16 [History] rOPINIRole [Requip] 3 mg PO HS 06/29/16 [History] Furosemide [Lasix] 60 mg PO DAILY 03/21/17 [History] Gabapentin [Neurontin] 600 mg PO TID 03/21/17 [History] Magnesium Amino Acid Chelate [Magnesium] 27 mg PO DAILY 03/21/17 [History] Metoprolol [Lopressor] 25 mg PO BID 03/21/17 [History] Potassium Chloride [K-Tab ER] 20 meq PO BID 03/21/17 [History] Propranolol HCl [Innopran Xl] 80 mg PO DAILY 03/21/17 [History] Budesonide/Formoterol 160/4.5 [Symbicort 160/4.5] 1 puff IH BIDR #1 inh [Rx] Nicotine Patch [Nicoderm] 1 each TD DAILY #30 patch.td24 03/25/17 [Rx] predniSONE [PredniSONE] See Taper PO DAILY #50 tablet 03/25/17 [Rx] Allergies/Adverse Reactions: 3 Allergy/AdvReac Type Severity Reaction Status Date / Time ciprofloxacin [From Cipro] Allergy Rash Verified 02/06/17 09:29 estradiol [From Climara] Allergy Rash Verified 02/06/17 09:29 lidocaine [From Lidoderm] Allergy Rash Verified 02/06/17 09:29 tramadol Allergy Rash Verified 02/06/17 09:29 Certification: Further, I certify that my clinical findings support that this patient is homebound (i.e. absences from home require considerable and taxing effort and are for medical reasons or [facility] services or infrequently or short duration when for other reasons) because: Homebound Reason: Leaving home requires considerable and taxing effort due to condition Attestation: My signature below is to certify that this patient is under my care and that I, or nurse practitioner, or a physician's physician's assistant working with me, has a face-to -face encounter with this patient. <Victor M Eid - Last Filed: 03/25/17 17:40> - Respiratory Orders Smoking Cessation: Smoking cessation has been advised. For more information, call the [place] Tobacco Quit Line at 7-139-FHBR-NOW. Certification: Further, I certify that my clinical findings support that this patient is homebound (i.e. absences from home require considerable and taxing effort and are for medical reasons or methodist services or infrequently or short duration when for other reasons) because: Attestation: My signature below is to certify that this patient is under my care and that I, or nurse practitioner, or a physician's physician's assistant working with me, has a face-to -face encounter with this patient. OK to discharged today I examined this patient and my medical decision-making was reviewed with the Resident Physician. I agree with the documented findings, disposition and treatment plan as described except to the extent set forth below.
[2017-03-25 15:08] VITALS: BP 146/86
[2017-03-27 01:40] LABS: CK-MB (CK isoenzymes) 0 % (0-4); CK-MM (CK-isoenzymes) 100 % (96-100)
[2017-03-27 08:13] LABS: CK Total (Ck Isoenzymes) 51 U/L (20-180)
[2017-03-27 08:14] LABS: CK-BB (CK isoenzymes) 0 % (0-0)
== END 2017-03-25 17:25 | disposition home health service (06) | DRG 189 ==
LOC: EMEROO 19:21 → 2NENU 19:21 → SUATTDRO 23:04 → 2NENU 23:31
PROVIDERS: ADMIT Hospitalist; ATTEND Internal Medicine

== ENCOUNTER 2019-08-31 18:12 | Observation (INO) ==
[2019-08-31 18:48] LABS: Bilirubin,Urine Negative (Negative); Blood,Urine Negative (Negative); Clarity,Urine Clear (Clear); Color,Urine Yellow (Yellow); Glucose,Urine (UA) Normal (Normal); Ketones,Urine Negative (Negative); Leukocyte Esterase,Urine Negative (Negative); Nitrite,Urine Negative (Negative); PH,Urine 6.5 pH Units (5.0-8.0); Protein,Urine Negative (Neg-Trace); Specific Gravity,Urine 1.008 (1.010-1.025); Urobilinogen,Urine Normal (Normal)
[2019-08-31 18:56] LABS: Amphetamine Screen,Urine Negative ng/mL (Cutoff=1000); Barbiturate Screen,Urine Negative ng/mL (Cutoff=200); Benzodiazepines Screen,Urine Negative ng/mL (Cutoff=200); Cannabinoid Screen,Urine Negative ng/mL (Cutoff = 50); Cocaine Screen,Urine Negative ng/mL (Cutoff= 300); Opiate Screen,Urine Negative ng/mL (Cutoff=300); Phencyclidine Screen,Urine Negative ng/mL (Cutoff=25)
[2019-08-31 19:11] LABS: Prothrombin Time 11.8 Seconds (9.4-12.1)
[2019-08-31 19:13] LABS: Activated Partial Thrombo Time 32.6 Seconds (26.0-36.0)
[2019-08-31 19:26] LABS: Acetaminophen < 10 mcg/mL (10-20); Alanine Aminotransferase 12 Units/L (7-52); Albumin 4.5 g/dL (3.5-5.7); Albumin/Globulin Ratio 2.1 (1.1-2.2); Alkaline Phosphatase 191 Units/L (34-104); Aspartate Amino Transferase 34 Units/L (13-39); BUN/Creatinine Ratio 21 (6-26); Bilirubin,Direct 0.4 mg/dL (0.0-0.2); Bilirubin,Indirect 1.4 mg/dL (0.0-1.0); Bilirubin,Total 1.8 mg/dL (0.3-1.0); Blood Urea Nitrogen 18 mg/dL (8-23); Calcium 9.4 mg/dL (8.6-10.3); Carbon Dioxide 29 mEq/L (23-29); Chloride 104 mEq/L (98-107); Creatine Kinase 77 Units/L (30-223); Ethanol < 10 mg/dL (Less than 10); Globulin 2.1 g/dL (2.4-3.5); Glucose 100 mg/dL (70-105); Osmolality,Calculated 296 (280-300); Potassium 4.2 mEq/L (3.5-5.1); Salicylate < 2.5 mg/dL (15.0-30.0); Sodium 142 mEq/L (136-145); Total Protein 6.6 g/dL (6.4-8.9); Troponin I < 0.03 ng/mL (< 0.04); eGFR For African Americans > 60 (> 60); eGFR For Non-African Americans > 60 (> 60)
[2019-08-31] MEDS ORDERED: Lactulose Oral Soln 20 GM/30 ML UDC PO ONE (19:39)
[2019-08-31 19:49] LABS: Basophils # 0.1 K/mcL (0.0-0.2); Basophils % 0.7 %; Eosinophils # 0.1 K/mcL (0.0-0.6); Eosinophils % 1.5 %; Hematocrit 30.3 % (35.3-44.9); Hemoglobin 10.1 g/dL (11.5-15.4); Immature Granulocytes % 0.4 % (0-4); Immature Platelets 4.3 % (1.1-6.1); Lymphocytes # 1.4 K/mcL (0.6-4.6); Lymphocytes % 19.5 %; Mean Corpuscular HGB Conc 33.3 g/dL (31.6-35.5); Mean Corpuscular Hemoglobin 33.6 pg (28.0-33.3); Mean Corpuscular Volume 100.7 fL (83.0-100.0); Mean Platelet Volume 10.2 fL (9.4-12.4); Monocytes # 0.7 K/mcL (0.0-1.3); Monocytes % 9.6 %; Neutrophils # 4.9 K/mcL (1.6-8.9); Platelet Count 184 K/mcL (140-400); Red Blood Count 3.01 M/mcL (3.82-4.97); Red Cell Distribution Width 14.7 % (11.5-14.5); Segmented Neutrophils % 68.3 %; White Blood Count 7.2 K/mcL (4.3-11.1)
[2019-08-31] MEDS ORDERED: Naloxone 0.4 MG/ML INJ IVP PRN (21:10)
[2019-08-31] MEDS ORDERED: Ipratropium/Albuterol Neb 3 ML IH PRN (22:35)
[2019-08-31] MEDS ORDERED: Ipratropium/Albuterol Neb 3 ML IH ONE (22:36)
[2019-08-31 22:57] LABS: Lactate Dehydrogenase 279 Units/L (140-271)
[2019-09-01 00:02] LABS: Gamma Glutamyl Transpeptidase 141 Units/L (7-64)
[2019-09-01] MEDS: Lactulose Oral Soln 20 GM/30 ML UDC PO SCH ×12 (00:35→12:31)
[2019-09-01] MEDS ORDERED: Acetaminophen 325 MG TABLET PO ONE (02:20)
[2019-09-01] MEDS ORDERED: Ipratropium/Albuterol Neb 3 ML IH PRN (03:00)
[2019-09-01] MEDS: *HR* Heparin 5,000 UNIT/ML VIAL SQ SCH ×2 (05:47→18:08)
[2019-09-01 05:54] LABS: Prothrombin Time 11.8 Seconds (9.4-12.1)
[2019-09-01 06:10] LABS: Alanine Aminotransferase 20 Units/L (7-52); Alkaline Phosphatase 208 Units/L (34-104); Aspartate Amino Transferase 39 Units/L (13-39); BUN/Creatinine Ratio 17 (6-26); Bilirubin,Total 1.8 mg/dL (0.3-1.0); Blood Urea Nitrogen 18 mg/dL (8-23); Calcium 10.3 mg/dL (8.6-10.3); Carbon Dioxide 29 mEq/L (23-29); Chloride 106 mEq/L (98-107); Globulin 2.5 g/dL (2.4-3.5); Glucose 104 mg/dL (70-105); Osmolality,Calculated 304 (280-300); Potassium 3.7 mEq/L (3.5-5.1); Sodium 146 mEq/L (136-145); Total Protein 7.5 g/dL (6.4-8.9); eGFR For African Americans > 60 (> 60); eGFR For Non-African Americans 50 (> 60)
[2019-09-01 06:11] LABS: % Iron Saturation 15 % (15-50); Iron 72 mcg/dL (50-170); Transferrin 346 mg/dL (203-362)
[2019-09-01 06:29] LABS: Ferritin 44 ng/mL (10-120)
[2019-09-01 06:31] LABS: Basophils # 0.1 K/mcL (0.0-0.2); Basophils % 0.9 %; Eosinophils # 0.1 K/mcL (0.0-0.6); Eosinophils % 1.9 %; Hematocrit 33.4 % (35.3-44.9); Hemoglobin 11.1 g/dL (11.5-15.4); Immature Granulocytes % 0.4 % (0-4); Lymphocytes # 1.9 K/mcL (0.6-4.6); Lymphocytes % 25.5 %; Mean Corpuscular HGB Conc 33.2 g/dL (31.6-35.5); Mean Corpuscular Hemoglobin 33.9 pg (28.0-33.3); Mean Platelet Volume 11.4 fL (9.4-12.4); Monocytes # 0.8 K/mcL (0.0-1.3); Neutrophils # 4.5 K/mcL (1.6-8.9); Platelet Count 183 K/mcL (140-400); Red Blood Count 3.27 M/mcL (3.82-4.97); Red Cell Distribution Width 14.8 % (11.5-14.5); Segmented Neutrophils % 60.3 %; White Blood Count 7.5 K/mcL (4.3-11.1)
[2019-09-01 06:32] LABS: Mean Corpuscular Volume 102.1 fL (83.0-100.0)
[2019-09-01] MEDS ORDERED: Lactulose Oral Soln 20 GM/30 ML UDC PO SCH (09:00)
[2019-09-01] MEDS: Furosemide 40 MG TABLET PO SCH ×2 (09:04→21:10)
[2019-09-01] MEDS: atenoloL 50 MG TABLET PO SCH (09:08)
[2019-09-01 09:24] LABS: Folate 11.4 ng/mL (3.0-16.0)
[2019-09-01] MEDS: Budesonide/Formoterol 160/4.5 1 PUFF INH IH SCH ×2 (11:12→20:17)
[2019-09-01] MEDS: Clotrimazole 1% CRM 15 GM TUBE TP SCH ×2 (12:58→21:13)
[2019-09-01] MEDS: Acetaminophen 325 MG TABLET PO PRN ×2 (15:45→22:16)
[2019-09-01] MEDS ORDERED: Lidocaine -MPF 1% 2 ML VIAL INFILT ONE (18:21)
[2019-09-02] MEDS: Acetaminophen 325 MG TABLET PO PRN ×3 (03:59→16:14)
[2019-09-02] MEDS: *HR* Heparin 5,000 UNIT/ML VIAL SQ SCH ×2 (06:00→16:15)
[2019-09-02 08:22] LABS: BUN/Creatinine Ratio 25 (6-26); Blood Urea Nitrogen 23 mg/dL (8-23); Calcium 9.2 mg/dL (8.6-10.3); Carbon Dioxide 29 mEq/L (23-29); Chloride 103 mEq/L (98-107); Glucose 115 mg/dL (70-105); Magnesium 1.7 mg/dL (1.6-2.6); Osmolality,Calculated 295 (280-300); Phosphorous 4.3 mg/dL (2.7-4.5); Potassium 4.1 mEq/L (3.5-5.1); Sodium 140 mEq/L (136-145); eGFR For African Americans > 60 (> 60); eGFR For Non-African Americans > 60 (> 60)
[2019-09-02] MEDS: Budesonide/Formoterol 160/4.5 1 PUFF INH IH SCH (08:23)
[2019-09-02] MEDS: Furosemide 40 MG TABLET PO SCH (09:24)
[2019-09-02] MEDS: atenoloL 50 MG TABLET PO SCH (09:24)
[2019-09-02 09:29] LABS: Basophils # 0.1 K/mcL (0.0-0.2); Basophils % 0.8 %; Eosinophils # 0.2 K/mcL (0.0-0.6); Eosinophils % 2.1 %; Hematocrit 31.4 % (35.3-44.9); Hemoglobin 9.8 g/dL (11.5-15.4); Immature Granulocytes % 0.1 % (0-4); Lymphocytes # 2.4 K/mcL (0.6-4.6); Lymphocytes % 30.8 %; Mean Corpuscular Hemoglobin 32.6 pg (28.0-33.3); Mean Corpuscular Volume 104.3 fL (83.0-100.0); Mean Platelet Volume 10.5 fL (9.4-12.4); Monocytes # 0.8 K/mcL (0.0-1.3); Monocytes % 10.2 %; Neutrophils # 4.3 K/mcL (1.6-8.9); Platelet Count 175 K/mcL (140-400); Red Blood Count 3.01 M/mcL (3.82-4.97); Red Cell Distribution Width 14.9 % (11.5-14.5); White Blood Count 7.6 K/mcL (4.3-11.1)
[2019-09-02] MEDS ORDERED: polyethylene glycoL 3350 17 GM POWD.PACK PO ONE (09:29)
[2019-09-02 09:31] LABS: Mean Corpuscular HGB Conc 31.2 g/dL (31.6-35.5)
[2019-09-02] MEDS: Clotrimazole 1% CRM 15 GM TUBE TP SCH (09:31)
[2019-09-02 15:16] VITALS: BP 109/66
== END 2019-09-02 19:34 | disposition home or self-care (01) ==
LOC: EMEROOARM 18:12 → 3ANU 18:12
PROVIDERS: ADMIT Internal Medicine; ATTEND Internal Medicine

== ENCOUNTER 2020-03-02 20:36 | Observation (INO) ==
[2020-03-02 21:58] LABS: INR 1.1; Prothrombin Time 12.9 Seconds (9.4-12.1)
[2020-03-02 22:00] LABS: Activated Partial Thrombo Time 27.6 Seconds (26.0-36.0)
[2020-03-02 22:12] LABS: BUN/Creatinine Ratio 33 (6-26); Blood Urea Nitrogen 23 mg/dL (8-23); Calcium 8.7 mg/dL (8.6-10.3); Carbon Dioxide 30 mEq/L (23-29); Chloride 105 mEq/L (98-107); Glucose 113 mg/dL (70-105); Osmolality,Calculated 296 (280-300); Potassium 4.4 mEq/L (3.5-5.1); Sodium 141 mEq/L (136-145); eGFR For African Americans > 60 (> 60); eGFR For Non-African Americans > 60 (> 60)
[2020-03-02 22:55] LABS: Basophils % 0.7 %; Immature Granulocytes % 0.4 % (0-4); Mean Platelet Volume 11.4 fL (9.4-12.4)
[2020-03-02 22:56] LABS: Basophils # 0.1 K/mcL (0.0-0.2); Eosinophils # 0.2 K/mcL (0.0-0.6); Eosinophils % 2.6 %; Hematocrit 18.6 % (35.3-44.9); Lymphocytes # 1.2 K/mcL (0.6-4.6); Lymphocytes % 17.7 %; Mean Corpuscular HGB Conc 29.6 g/dL (31.6-35.5); Mean Corpuscular Hemoglobin 27.9 pg (28.0-33.3); Mean Corpuscular Volume 94.4 fL (83.0-100.0); Monocytes # 0.7 K/mcL (0.0-1.3); Monocytes % 10.3 %; Neutrophils # 4.8 K/mcL (1.6-8.9); Nucleated Red Blood Cells 0.3 /100 WBC (0); Platelet Count 160 K/mcL (140-400); Red Blood Count 1.97 M/mcL (3.82-4.97); Red Cell Distribution Width 18.3 % (11.5-14.5); Segmented Neutrophils % 68.3 %
[2020-03-02 23:01] LABS: Hemoglobin 5.5 g/dL (11.5-15.4)
[2020-03-02 23:03] LABS: Bacteria,Urine Few per hpf (None-Few); Bilirubin,Urine Negative (Negative); Blood,Urine Negative (Negative); Calcium Oxalate Crystals,Urine Present; Clarity,Urine Turbid (Clear); Color,Urine Yellow (Yellow); Glucose,Urine (UA) Normal (Normal); Ketones,Urine Negative (Negative); Leukocyte Esterase,Urine Large (Negative); Mucus,Urine Few per lpf (None-Few); Nitrite,Urine Positive (Negative); Protein,Urine 30 mg/dL (Neg-Trace); RBC,Urine 0-3 per hpf (0-3); Specific Gravity,Urine 1.024 (1.010-1.025); Squamous Epithelial Cell,Urine Moderate per hpf (None-Few); Transitional Epi Cells,Urine Few per hpf (None-Few); Triple Phosphate Crystal,Urine Present; WBC,Urine 50-100 per hpf (0-3)
[2020-03-02] MEDS ORDERED: cefTRIAXone 1,000 MG in 0.9 % Sodium Chloride Mini Bag 100 ML IVPB ONE (23:08)
[2020-03-02] MEDS ORDERED: 0.9 % Sodium Chloride 250 ML ONE (23:09)
[2020-03-02 23:15] LABS: Anisocytosis 2+ (Not Present); Hypochromasia Present (Not Present); Macrocytosis Present (Not Present); Microcytosis Present (Not Present); Platelet Estimate Normal (Normal); Poikilocytosis 2+ (Not Present); Polychromasia 1+ (Not Present)
[2020-03-03 00:45] LABS: Adenovirus Not Detected (Not Detect); Bordetella Pertussis Not Detected (Not Detect); Chlamydophila pneumoniae Not Detected (Not Detect); Coronavirus 229E Not Detected (Not Detect); Coronavirus HKU1 Not Detected (Not Detect); Coronavirus NL63 Not Detected (Not Detect); Coronavirus OC43 Not Detected (Not Detect); Human Metapneumovirus Not Detected (Not Detect); Human Rhinovirus/Enterovirus Not Detected (Not Detect); Influenza A Subtype 2009 H1 Not Detected (Not Detect); Influenza B Not Detected (Not Detect); Mycoplasma pneumoniae Not Detected (Not Detect); Parainfluenza Virus 1 Not Detected (Not Detect); Parainfluenza Virus 2 Not Detected (Not Detect); Parainfluenza Virus 3 Not Detected (Not Detect); Parainfluenza Virus 4 Not Detected (Not Detect); Respiratory Syncytial Virus Not Detected (Not Detect); SARS-CoV-2 Not Detected (Not Detect)
[2020-03-03] MEDS ORDERED: cefTRIAXone 1,000 MG in 0.9 % Sodium Chloride Mini Bag 100 ML IVPB SCH (01:00)
[2020-03-03] MEDS ORDERED: *HR* Promethazine 25 MG/ML VIAL IM PRN (01:24)
[2020-03-03] MEDS ORDERED: Naloxone 0.4 MG/ML INJ IVP PRN (01:24)
[2020-03-03] MEDS ORDERED: Pantoprazole 80 MG in 0.9 % Sodium Chloride 50 ML IVPB ONE (02:48)
[2020-03-03] MEDS ORDERED: 0.9 % Sodium Chloride 250 ML ONE ×2 (03:34→13:12)
[2020-03-03] MEDS: Acetaminophen 325 MG TABLET PO PRN ×2 (04:53→20:19)
[2020-03-03] MEDS: Pantoprazole 40 MG VIAL IVP SCH ×2 (04:59→17:17)
[2020-03-03 08:08] LABS: Alanine Aminotransferase 12 Units/L (7-52); Albumin 3.7 g/dL (3.5-5.7); Albumin/Globulin Ratio 1.9 (1.1-2.2); Alkaline Phosphatase 101 Units/L (34-104); Aspartate Amino Transferase 29 Units/L (13-39); BUN/Creatinine Ratio 32 (6-26); Bilirubin,Total 2.7 mg/dL (0.3-1.0); Blood Urea Nitrogen 22 mg/dL (8-23); Calcium 8.6 mg/dL (8.6-10.3); Carbon Dioxide 28 mEq/L (23-29); Chloride 105 mEq/L (98-107); Globulin 1.9 g/dL (2.4-3.5); Glucose 103 mg/dL (70-105); Magnesium 1.8 mg/dL (1.6-2.6); Osmolality,Calculated 294 (280-300); Phosphorous 3.4 mg/dL (2.7-4.5); Potassium 4.2 mEq/L (3.5-5.1); Sodium 140 mEq/L (136-145); Total Protein 5.6 g/dL (6.4-8.9); eGFR For African Americans > 60 (> 60); eGFR For Non-African Americans > 60 (> 60)
[2020-03-03 09:20] LABS: % Iron Saturation 8 % (15-50); Iron 42 mcg/dL (50-170); Transferrin 353 mg/dL (203-362)
[2020-03-03 09:29] LABS: Basophils # 0.1 K/mcL (0.0-0.2); Basophils % 0.8 %; Eosinophils # 0.1 K/mcL (0.0-0.6); Eosinophils % 2.2 %; Hematocrit 23.8 % (35.3-44.9); Hemoglobin 7.2 g/dL (11.5-15.4); Immature Granulocytes % 0.6 % (0-4); Lymphocytes # 1.1 K/mcL (0.6-4.6); Lymphocytes % 17.9 %; Mean Corpuscular HGB Conc 30.3 g/dL (31.6-35.5); Mean Corpuscular Hemoglobin 28.7 pg (28.0-33.3); Mean Platelet Volume 11.2 fL (9.4-12.4); Monocytes # 0.6 K/mcL (0.0-1.3); Monocytes % 10.1 %; Neutrophils # 4.3 K/mcL (1.6-8.9); Platelet Count 130 K/mcL (140-400); Red Cell Distribution Width 17.4 % (11.5-14.5); Segmented Neutrophils % 68.4 %; White Blood Count 6.3 K/mcL (4.3-11.1)
[2020-03-03 09:35] LABS: Mean Corpuscular Volume 94.8 fL (83.0-100.0)
[2020-03-03 09:37] LABS: Ferritin 11 ng/mL (10-120)
[2020-03-03 09:38] LABS: Red Blood Count 2.51 M/mcL (3.82-4.97)
[2020-03-03 09:46] LABS: % Iron Saturation 53 % (15-50); Iron 235 mcg/dL (50-170); Transferrin 314 mg/dL (203-362)
[2020-03-03 10:04] LABS: Ferritin 11 ng/mL (10-120)
[2020-03-03 10:09] LABS: Folate 18.3 ng/mL (3.0-16.0)
[2020-03-03 10:27] LABS: Hematocrit 24.7 % (35.3-44.9); Hemoglobin 7.3 g/dL (11.5-15.4)
[2020-03-03] MEDS ORDERED: *HR* Propofol 200 MG/20 ML VIAL IVP ONE (11:48)
[2020-03-03] MEDS ORDERED: Lidocaine -MPF 2% 2 ML VIAL ONE (11:48)
[2020-03-03] MEDS: Furosemide 20 MG TABLET PO SCH (17:16)
[2020-03-03 20:05] LABS: Hemoglobin 8.3 g/dL (11.5-15.4)
[2020-03-03 20:17] LABS: Hematocrit 25.1 % (35.3-44.9)
[2020-03-03] MEDS: Pregabalin 75 MG CAPSULE PO SCH (20:17)
[2020-03-03] MEDS: Sucralfate 1 GM TABLET PO SCH (20:19)
[2020-03-03] MEDS: cefTRIAXone 1,000 MG in Water for inj. (sterile) 10 ML IVP SCH (20:20)
[2020-03-03] MEDS: Melatonin 3 MG TABLET PO SCH (22:32)
[2020-03-04 01:25] LABS: BUN/Creatinine Ratio 30 (6-26); Blood Urea Nitrogen 19 mg/dL (8-23); Calcium 8.7 mg/dL (8.6-10.3); Carbon Dioxide 29 mEq/L (23-29); Chloride 105 mEq/L (98-107); Glucose 119 mg/dL (70-105); Osmolality,Calculated 293 (280-300); Potassium 4.1 mEq/L (3.5-5.1); Sodium 140 mEq/L (136-145); eGFR For African Americans > 60 (> 60); eGFR For Non-African Americans > 60 (> 60)
[2020-03-04 01:52] LABS: Basophils % 0.6 %; Nucleated Red Blood Cells 0.3 /100 WBC (0)
[2020-03-04 01:55] LABS: Eosinophils # 0.2 K/mcL (0.0-0.6); Hematocrit 26.3 % (35.3-44.9); Hemoglobin 7.9 g/dL (11.5-15.4); Immature Granulocytes % 0.9 % (0-4); Lymphocytes # 1.4 K/mcL (0.6-4.6); Lymphocytes % 22.2 %; Mean Corpuscular Hemoglobin 28.1 pg (28.0-33.3); Mean Corpuscular Volume 93.6 fL (83.0-100.0); Mean Platelet Volume 10.8 fL (9.4-12.4); Monocytes # 0.7 K/mcL (0.0-1.3); Monocytes % 11.2 %; Neutrophils # 3.9 K/mcL (1.6-8.9); Platelet Count 129 K/mcL (140-400); Red Blood Count 2.81 M/mcL (3.82-4.97); Red Cell Distribution Width 18.4 % (11.5-14.5); Segmented Neutrophils % 62.1 %; White Blood Count 6.3 K/mcL (4.3-11.1)
[2020-03-04] MEDS: Acetaminophen 325 MG TABLET PO PRN ×4 (02:32→21:36)
[2020-03-04] MEDS: Pantoprazole 40 MG VIAL IVP SCH ×2 (05:13→17:54)
[2020-03-04] MEDS: Magnesium Oxide 400 MG TABLET PO SCH (08:35)
[2020-03-04] MEDS: Propranolol LA (24 HR) 60 MG CAP.SA.24H PO SCH (08:35)
[2020-03-04] MEDS: Pregabalin 75 MG CAPSULE PO SCH ×2 (08:35→21:37)
[2020-03-04] MEDS: Furosemide 20 MG TABLET PO SCH ×2 (08:35→17:54)
[2020-03-04] MEDS ORDERED: OLANZapine 5 MG TAB.RAPDIS PO SCH (09:00)
[2020-03-04 10:34] LABS: Hemoglobin 8.4 g/dL (11.5-15.4)
[2020-03-04 10:35] LABS: Hematocrit 28.7 % (35.3-44.9)
[2020-03-04] MEDS: QUEtiapine Fumarate 25 MG TABLET PO SCH ×2 (15:23→21:36)
[2020-03-04] MEDS ORDERED: Mirtazapine 15 MG TABLET PO SCH (21:00)
[2020-03-04] MEDS: cefTRIAXone 1,000 MG in Water for inj. (sterile) 10 ML IVP SCH (21:37)
[2020-03-04] MEDS: Sucralfate 1 GM TABLET PO SCH (21:37)
[2020-03-04] MEDS: Melatonin 3 MG TABLET PO SCH (21:37)
[2020-03-05] MEDS: Pantoprazole 40 MG VIAL IVP SCH (05:33)
[2020-03-05] MEDS: Acetaminophen 325 MG TABLET PO PRN (06:48)
[2020-03-05 07:50] LABS: Hemoglobin 8.3 g/dL (11.5-15.4)
[2020-03-05 07:51] LABS: Hematocrit 27.7 % (35.3-44.9)
[2020-03-05] MEDS: QUEtiapine Fumarate 25 MG TABLET PO SCH (08:57)
[2020-03-05] MEDS: Pregabalin 75 MG CAPSULE PO SCH (08:57)
[2020-03-05] MEDS: Propranolol LA (24 HR) 60 MG CAP.SA.24H PO SCH (08:57)
[2020-03-05] MEDS: Magnesium Oxide 400 MG TABLET PO SCH (08:57)
[2020-03-05] MEDS: Furosemide 20 MG TABLET PO SCH (08:57)
[2020-03-05 11:17] VITALS: BP 114/68
== END 2020-03-05 13:06 | disposition home or self-care (01) ==
LOC: 3ANU 20:36 → EMEROOARM 20:36 → SUATTDRO 03-03 01:16 → 3ANU 03-03 02:05
PROVIDERS: ADMIT Internal Medicine; ATTEND Family Medicine
PROC: ENDOEBX (2020-03-03 17:00)

== ENCOUNTER 2021-05-07 15:18 | Inpatient (IN) ==
[2021-05-07 16:28] LABS: BUN/Creatinine Ratio 13 (6-26); Blood Urea Nitrogen 13 mg/dL (8-23); Calcium 8.8 mg/dL (8.6-10.3); Carbon Dioxide 30 mEq/L (23-29); Chloride 103 mEq/L (98-107); Glucose 117 mg/dL (70-105); Osmolality,Calculated 295 (280-300); Potassium 3.3 mEq/L (3.5-5.1); Sodium 142 mEq/L (136-145); Troponin I < 0.03 ng/mL (< 0.04); eGFR For African Americans > 60 (> 60); eGFR For Non-African Americans 55 (> 60)
[2021-05-07 17:29] LABS: Adenovirus Not Detected (Not Detect); Bordetella Pertussis Not Detected (Not Detect); Chlamydophila pneumoniae Not Detected (Not Detect); Coronavirus 229E Not Detected (Not Detect); Coronavirus HKU1 Not Detected (Not Detect); Coronavirus NL63 Not Detected (Not Detect); Coronavirus OC43 Not Detected (Not Detect); Human Metapneumovirus Not Detected (Not Detect); Human Rhinovirus/Enterovirus Not Detected (Not Detect); Influenza A Subtype 2009 H1 Not Detected (Not Detect); Influenza B Not Detected (Not Detect); Mycoplasma pneumoniae Not Detected (Not Detect); Parainfluenza Virus 1 Not Detected (Not Detect); Parainfluenza Virus 2 Not Detected (Not Detect); Parainfluenza Virus 3 Not Detected (Not Detect); Parainfluenza Virus 4 Not Detected (Not Detect); Respiratory Syncytial Virus Not Detected (Not Detect); SARS-CoV-2 Not Detected (Not Detect)
[2021-05-07] MEDS ORDERED: Ipratropium/Albuterol Neb 3 ML IH ONE (17:40)
[2021-05-07 17:41] LABS: Basophils # 0.1 K/mcL (0.0-0.2); Basophils % 0.7 %; Eosinophils # 0.2 K/mcL (0.0-0.6); Eosinophils % 2.4 %; Hematocrit 23.8 % (35.3-44.9); Hemoglobin 7.7 g/dL (11.5-15.4); Immature Granulocytes % 0.4 % (0-4); Lymphocytes # 0.6 K/mcL (0.6-4.6); Lymphocytes % 8.7 %; Mean Corpuscular HGB Conc 32.4 g/dL (31.6-35.5); Mean Corpuscular Hemoglobin 32.9 pg (28.0-33.3); Mean Corpuscular Volume 101.7 fL (83.0-100.0); Mean Platelet Volume 10.9 fL (9.4-12.4); Monocytes # 0.8 K/mcL (0.0-1.3); Monocytes % 10.8 %; Neutrophils # 5.7 K/mcL (1.6-8.9); Platelet Count 155 K/mcL (140-400); Red Blood Count 2.34 M/mcL (3.82-4.97); Red Cell Distribution Width 16.8 % (11.5-14.5); White Blood Count 7.4 K/mcL (4.3-11.1)
[2021-05-07] MEDS ORDERED: predniSONE 20 MG TABLET PO ONE (17:41)
[2021-05-07] MEDS ORDERED: cefTRIAXone 1,000 MG in Water for inj. (sterile) 10 ML IVP ONE (19:55)
[2021-05-07] MEDS ORDERED: Azithromycin 500 MG in 0.9 % Sodium Chloride 250 ML IVPB ONE (19:55)
[2021-05-07] MEDS ORDERED: Pantoprazole 40 MG VIAL IVP ONE (20:00)
[2021-05-07] MEDS ORDERED: Isovue-370 500 ML BOTTLE IVP ONE (20:12)
[2021-05-07] MEDS ORDERED: *HR* Promethazine 25 MG/ML VIAL IM PRN (20:31)
[2021-05-07] MEDS ORDERED: Naloxone 0.4 MG/ML INJ IVP PRN (20:31)
[2021-05-07] MEDS ORDERED: Melatonin 3 MG TABLET PO PRN (20:31)
[2021-05-07] MEDS ORDERED: Ondansetron 4 MG/2 ML VIAL IVP PRN (20:31)
[2021-05-07] MEDS ORDERED: *HR* OxyCODONE Immed Rel 5 MG TABLET PO PRN (20:31)
[2021-05-07] MEDS ORDERED: Ipratropium/Albuterol Neb 3 ML IH PRN (21:35)
[2021-05-07] MEDS: QUEtiapine Fumarate 25 MG TABLET PO SCH (21:52)
[2021-05-07] MEDS: Melatonin 3 MG TABLET PO SCH (21:52)
[2021-05-07] MEDS: Pregabalin 75 MG CAPSULE PO SCH (21:52)
[2021-05-07] MEDS: cefTRIAXone 1,000 MG in Water for inj. (sterile) 10 ML IVP SCH (22:20)
[2021-05-07] MEDS: Pantoprazole 40 MG VIAL IVP SCH (22:20)
[2021-05-07] MEDS: Azithromycin 500 MG in 0.9 % Sodium Chloride 250 ML IVPB SCH (22:20)
[2021-05-08] MEDS: *HR* HYDROcodone/Acet 5/325 mg TABLET PO PRN (00:35)
[2021-05-08 05:32] LABS: INR 1.1
[2021-05-08] MEDS: Acetaminophen 325 MG TABLET PO PRN ×2 (05:45→20:57)
[2021-05-08] MEDS: *HR* Enoxaparin 40 MG/0.4 ML SYRINGE SQ SCH (05:46)
[2021-05-08] MEDS: Pantoprazole 40 MG VIAL IVP SCH (05:46)
[2021-05-08 06:21] LABS: Chloride 105 mEq/L (98-107); Potassium 3.9 mEq/L (3.5-5.1); Sodium 143 mEq/L (136-145)
[2021-05-08 06:22] LABS: Alanine Aminotransferase 27 Units/L (7-52); Albumin 3.7 g/dL (3.5-5.7); Albumin/Globulin Ratio 1.6 (1.1-2.2); Alkaline Phosphatase 153 Units/L (34-104); Aspartate Amino Transferase 37 Units/L (13-39); BUN/Creatinine Ratio 17 (6-26); Bilirubin,Total 1.1 mg/dL (0.3-1.0); Blood Urea Nitrogen 15 mg/dL (8-23); Calcium 8.7 mg/dL (8.6-10.3); Carbon Dioxide 29 mEq/L (23-29); Globulin 2.3 g/dL (2.4-3.5); Glucose 117 mg/dL (70-105); Magnesium 1.9 mg/dL (1.6-2.6); Osmolality,Calculated 298 (280-300); eGFR For African Americans > 60 (> 60); eGFR For Non-African Americans > 60 (> 60)
[2021-05-08 06:47] LABS: Basophils % 0.2 %; Hematocrit 37.1 % (35.3-44.9); Immature Granulocytes % 1.3 % (0-4); Lymphocytes # 0.3 K/mcL (0.6-4.6); Lymphocytes % 6.3 %; Mean Corpuscular HGB Conc 31.8 g/dL (31.6-35.5); Mean Corpuscular Hemoglobin 31.6 pg (28.0-33.3); Mean Platelet Volume 10.9 fL (9.4-12.4); Monocytes # 0.2 K/mcL (0.0-1.3); Monocytes % 4.5 %; Platelet Count 102 K/mcL (140-400); Red Blood Count 3.74 M/mcL (3.82-4.97); Red Cell Distribution Width 16.9 % (11.5-14.5); Segmented Neutrophils % 87.7 %; White Blood Count 4.5 K/mcL (4.3-11.1)
[2021-05-08 06:48] LABS: Hemoglobin 11.8 g/dL (11.5-15.4); Mean Corpuscular Volume 99.2 fL (83.0-100.0)
[2021-05-08] MEDS: Furosemide 40 MG/4 ML VIAL IVP SCH ×2 (08:42→16:01)
[2021-05-08] MEDS: QUEtiapine Fumarate 25 MG TABLET PO SCH ×2 (08:43→21:02)
[2021-05-08] MEDS: Pregabalin 75 MG CAPSULE PO SCH ×2 (08:43→20:57)
[2021-05-08] MEDS: atenoloL 50 MG TABLET PO SCH (08:43)
[2021-05-08] MEDS: Magnesium Oxide 400 MG TABLET PO SCH (08:44)
[2021-05-08 10:22] LABS: Hemoglobin 8.5 g/dL (11.5-15.4)
[2021-05-08 10:29] LABS: Hematocrit 26.5 % (35.3-44.9)
[2021-05-08] MEDS ORDERED: Perflutren Lipid Microsphere 1.3 ML in 0.9 % Sodium Chloride 8.7 ML IVP PRN (10:34)
[2021-05-08] MEDS: Melatonin 3 MG TABLET PO SCH (20:57)
[2021-05-08] MEDS: Azithromycin 500 MG in 0.9 % Sodium Chloride 250 ML IVPB SCH (20:57)
[2021-05-08] MEDS: cefTRIAXone 1,000 MG in Water for inj. (sterile) 10 ML IVP SCH (20:59)
[2021-05-09] MEDS: *HR* HYDROcodone/Acet 5/325 mg TABLET PO PRN ×2 (00:18→18:03)
[2021-05-09] MEDS: Pantoprazole 40 MG VIAL IVP SCH ×2 (05:23→18:03)
[2021-05-09] MEDS: *HR* Enoxaparin 40 MG/0.4 ML SYRINGE SQ SCH (05:54)
[2021-05-09] MEDS: Acetaminophen 325 MG TABLET PO PRN (06:49)
[2021-05-09 07:11] LABS: BUN/Creatinine Ratio 18 (6-26); Basophils # 0.1 K/mcL (0.0-0.2); Basophils % 0.8 %; Blood Urea Nitrogen 19 mg/dL (8-23); Calcium 8.9 mg/dL (8.6-10.3); Carbon Dioxide 34 mEq/L (23-29); Chloride 100 mEq/L (98-107); Eosinophils # 0.2 K/mcL (0.0-0.6); Glucose 103 mg/dL (70-105); Hematocrit 24.6 % (35.3-44.9); Hemoglobin 8.1 g/dL (11.5-15.4); Immature Granulocytes % 0.8 % (0-4); Lymphocytes # 1.2 K/mcL (0.6-4.6); Lymphocytes % 16.5 %; Mean Corpuscular HGB Conc 32.9 g/dL (31.6-35.5); Mean Corpuscular Hemoglobin 32.7 pg (28.0-33.3); Mean Platelet Volume 10.6 fL (9.4-12.4); Monocytes # 0.7 K/mcL (0.0-1.3); Monocytes % 9.3 %; Neutrophils # 5.1 K/mcL (1.6-8.9); Nucleated Red Blood Cells 0.3 /100 WBC (0); Osmolality,Calculated 297 (280-300); Platelet Count 164 K/mcL (140-400); Potassium 3.5 mEq/L (3.5-5.1); Red Blood Count 2.48 M/mcL (3.82-4.97); Red Cell Distribution Width 16.9 % (11.5-14.5); Segmented Neutrophils % 69.6 %; Sodium 142 mEq/L (136-145); White Blood Count 7.3 K/mcL (4.3-11.1); eGFR For African Americans > 60 (> 60); eGFR For Non-African Americans 50 (> 60)
[2021-05-09 07:12] LABS: Mean Corpuscular Volume 99.2 fL (83.0-100.0)
[2021-05-09] MEDS: Furosemide 40 MG/4 ML VIAL IVP SCH ×2 (09:00→18:03)
[2021-05-09] MEDS: QUEtiapine Fumarate 25 MG TABLET PO SCH ×2 (09:00→20:37)
[2021-05-09] MEDS: atenoloL 50 MG TABLET PO SCH (09:01)
[2021-05-09] MEDS: Pregabalin 75 MG CAPSULE PO SCH ×2 (09:01→20:37)
[2021-05-09] MEDS: Magnesium Oxide 400 MG TABLET PO SCH (09:02)
[2021-05-09] MEDS: lisinopriL 10 MG TABLET PO SCH (13:31)
[2021-05-09] MEDS ORDERED: *HR* Propofol 200 MG/20 ML VIAL IVP ONE (14:20)
[2021-05-09] MEDS ORDERED: Lidocaine -MPF 2% 5 ML VIAL ONE (15:16)
[2021-05-09] MEDS: Azithromycin 500 MG in 0.9 % Sodium Chloride 250 ML IVPB SCH (20:36)
[2021-05-09] MEDS: cefTRIAXone 1,000 MG in Water for inj. (sterile) 10 ML IVP SCH (20:36)
[2021-05-09] MEDS: Melatonin 3 MG TABLET PO SCH (20:37)
[2021-05-10] MEDS: Acetaminophen 325 MG TABLET PO PRN (00:58)
[2021-05-10] MEDS: Pantoprazole 40 MG VIAL IVP SCH (05:20)
[2021-05-10] MEDS: *HR* HYDROcodone/Acet 5/325 mg TABLET PO PRN (05:20)
[2021-05-10 06:18] LABS: Hematocrit 22.8 % (35.3-44.9); Hemoglobin 7.2 g/dL (11.5-15.4); Mean Corpuscular HGB Conc 31.6 g/dL (31.6-35.5); Mean Corpuscular Hemoglobin 31.2 pg (28.0-33.3); Mean Corpuscular Volume 98.7 fL (83.0-100.0); Mean Platelet Volume 10.6 fL (9.4-12.4); Platelet Count 154 K/mcL (140-400); Red Blood Count 2.31 M/mcL (3.82-4.97); Red Cell Distribution Width 17.1 % (11.5-14.5); White Blood Count 5.9 K/mcL (4.3-11.1)
[2021-05-10 07:23] VITALS: BP 127/54; PULSE 68; TEMP 97.9; O2SAT 94
[2021-05-10] MEDS: lisinopriL 10 MG TABLET PO SCH (09:41)
[2021-05-10] MEDS: QUEtiapine Fumarate 25 MG TABLET PO SCH (09:41)
[2021-05-10] MEDS: Magnesium Oxide 400 MG TABLET PO SCH (09:42)
[2021-05-10] MEDS: atenoloL 50 MG TABLET PO SCH (09:42)
[2021-05-10] MEDS: Pregabalin 75 MG CAPSULE PO SCH (09:42)
[2021-05-10] MEDS: Furosemide 40 MG/4 ML VIAL IVP SCH (10:34)
[2021-05-10 10:37] LABS: BUN/Creatinine Ratio 19 (6-26); Blood Urea Nitrogen 16 mg/dL (8-23); Calcium 8.7 mg/dL (8.6-10.3); Carbon Dioxide 33 mEq/L (23-29); Chloride 101 mEq/L (98-107); Glucose 156 mg/dL (70-105); Osmolality,Calculated 298 (280-300); Potassium 3.4 mEq/L (3.5-5.1); Sodium 142 mEq/L (136-145); eGFR For African Americans > 60 (> 60); eGFR For Non-African Americans > 60 (> 60)
[2021-05-10] MEDS ORDERED: FLU Vac QV 21-22 (6Month+)/PF 0.5 ML SYRINGE IM ONE (13:13)
== END 2021-05-10 14:20 | disposition home or self-care (01) | DRG 377 ==
LOC: 3ANU 15:18 → EMEROOARM 15:18 → SUATTDRO 20:36 → 3ANU 21:12
PROVIDERS: ADMIT Internal Medicine; ATTEND Internal Medicine